=== PATIENT | male | born 1940 | race Caucasian/White ===

== ENCOUNTER 2016-10-25 15:02 | Inpatient (IN) | payer MEDICARE ==
[~2016-10-25] VITALS: Ht 175.3 cm; Wt 95.7 kg
[2016-10-25 15:02] VITALS: BP 151/58; PULSE 87; RESP 26; O2SAT 95
[2016-10-25] MEDS ORDERED: 0.9% Sodium Chloride 1,000 ML IV ONE (15:55)
[2016-10-25] MEDS ORDERED: Ondansetron 2 mg/mL 2 mL Inj IVPUSH PRN (15:55)
--- NOTE | 2016-10-25 15:55 | ED.REPORT ---
HPI-General Illness Date of Service Oct 25, 2016 ED Provider: Curt Meyers DO The patient is a 75 year old male with history of diabetes mellitus who was brought to the emergency department by EMS for generalized weakness and a fever. The patient ate a chicken enchilada last night and subsequently started to feel ill. He vomited last night but has not vomited today. He has also experienced diarrhea. He denies hematemesis, bloody stools or abdominal pain. He has also had a foot infection for the last few months and has been treated with antibiotics. He denies chest pain or shortness of breath. Nursing Notes Stated Complaint: GENERAL WEAKNESS, AMS Chief Complaint: General Complaint Nursing Notes Reviewed: Yes Allergies: Coded Allergies: No Known Allergies (Unverified , 10/25/16) Scheduled Insulin Glargine (Lantus U100 Solostar Insulin Pen) 100 Unit/1 Ml Insuln.pen 30 UNIT SUBQ QAM Insulin Glargine (Lantus U100 Solostar Insulin Pen) 100 Unit/1 Ml Insuln.pen 20 UNIT SUBQ QPM Meloxicam (Meloxicam) 15 Mg Tablet 15 MG PO QAM Metformin (Metformin) 500 Mg Tablet 1,000 MG PO BID Paroxetine (Paxil) 20 Mg Tablet 20 MG PO HS General Time Seen by MD: 15:19 Chief Complaint Fever, Weakness Hx Obtained From: Patient, EMS Arrived By: Ambulance Sudden in Onset?: Yes Onset Occurred: Yesterday Symptom Duration: Since onset Severity: Current: No pain currently Severity: Maximum: No pain Recent Healthcare: Recent doctor visit Similar Sx Previous: No Past Medical History Past Medical History Diabetes mellitus Past Surgical History Cataract surgery Knee surgery Family History Noncontributory Smoking History Never Smoker Social History Lives on [facility] Alcohol Use: Denies alcohol use Drug Use: Denies drug use Ambulatory Status Independent Review of Systems Full Review of Systems Constitutional: Reports: Fever, Weakness - generalized Respiratory: Denies: Shortness of breath Cardiovascular: Denies: Chest pain GI: Reports: Diarrhea, Nausea, Vomiting Neurologic: Reports: Weakness Complete sys rev & neg: except as marked. Physical Exam Vital Signs Vital Signs Date Time Temp Pulse Resp B/P Pulse Ox O2 Delivery O2 Flow Rate FiO2 10/25/16 17:27 89 24 146/51 98 Room Air 10/25/16 15:02 38.1 87 26 151/58 95 Room Air Initial VS: Reviewed Head / Eyes: Atraumatic, Normocephalic, PERRL ENT: Mucous membranes moist, Conjunctiva normal, No scleral icterus Neck: Supple, Non-tender, Full range of motion Respiratory: Breath sounds normal, Clear to auscultation, No respiratory distress Abdomen / GI: Soft, Non-tender, No guarding, No rebound, No distention Lymphatic: No lymphadenopathy Extremities: Vascular intact, Neuro intact Skin: Warm, Dry, No cyanosis Neurologic: Alert, Oriented, Nonfocal Psychiatric: Mood/affect normal, Behavior normal, Normal thought content General/Constitutional: Awake, Alert, Well appearing Heart Sounds / Murmur: Positive: Systolic murmur present.. (III/ at the right upper sternal border) Ankle / Foot: Neurologic intact, Vascular intact Redness, swelling, and warmth to left foot with erythema streaking up to the knee. Interpretation & Diagnostics Lab Results Interpretation Result Diagram: 10/25/16 1550 10/25/16 1550 Test 10/25/16 15:50 White Blood Count 10.6th/mm3 (3.8-10.1) Red Blood Count 4.09mil/mm3 (4.40-5.80) Hemoglobin 12.6g/dL (13.8-17.2) Hematocrit 36.7% (41.0-50.0) Mean Corpuscular Volume 89.7fL (81-100) Mean Corpuscular Hemoglobin 30.8pg (27.0-35.0) Mean Corpuscular Hemoglobin Concent 34.3% (32.0-37.0) Red Cell Distribution Width 13.3% (12.3-15.4) Platelet Count 164bil/L (150-400) Neutrophils (%) (Auto) 92.1% (40-74) Lymphocytes (%) (Auto) 3.9% (14-46) Monocytes (%) (Auto) 3.3% (4-12) Eosinophils (%) (Auto) 0% (0-5) Basophils (%) (Auto) 0.1% (0-3) Sodium Level 132mEq/L (134-144) Potassium Level 3.8mEq/L (3.5-5.2) Chloride Level 91mEq/L (97-108) Carbon Dioxide Level 26mmol/L (18-29) Blood Urea Nitrogen 19mg/dL (8-27) Creatinine 0.84mg/dL (0.76-1.27) Estimat Glomerular Filtration Rate 95mL/min (>59) Glucose Level 192mg/dL (60-99) Lactic Acid Level 2.8mmol/L (0.4-2.0) Calcium Level 8.9mg/dL (8.5-10.1) Magnesium Level 1.5mg/dL (1.6-2.6) Total Bilirubin 0.8mg/dL (0.0-1.2) Aspartate Amino Transf (AST/SGOT) 27U/L (0-50) Alanine Aminotransferase (ALT/SGPT) 20U/L (0-44) Alkaline Phosphatase 65U/L (25-160) Troponin T 0.160ug/L (0.0-0.011) Total Protein 7.4g/dL (6.4-8.4) Albumin 3.7g/dL (3.4-5.0) ECG Interpretation ECG Interpretation: Sinus rhythm PAC Inferior Q waves Time: 15:40 Interpreted by: ED physician Re-Eval/Medical Decision Med Decision/Clinical Course Concerned that the patient's weakness and vomiting may be a silent IA, and significantly elevated troponin. Additionally he has a diabetic foot wound with lactic acidosis based on vancomycin and Zosyn. Patient will be heparinized. Cardiology is consulted, patient will be admitted. Source of Hx: Old records, EMS Time of Eval: 17:02 Re-Evaluation/Progress Note: Rechecked the patient. He complains of feeling weak and lousy. He denies chest pain or shortness of breath. Discussed plan for admission. Consultation #1: Referral / Consult Name: Rizwana Cao MD Consulted With: Cardiology Call Returned at: 17:26 Rent [employer] Miscellaneous Remittance Clerk: Agrees with eval, Agrees with plan Note: Start the patient on aspirin, statin, and heparin. Trend troponins, order echocardiogram and NPO tonight at midnight. Consultation #2: Referral / Consult Name: Pierre Almanza MD Consulted With: Hospitalist Call Returned at: 17:48 Rent And Miscellaneous Remittance Clerk: Will see patient, Agrees with eval, Agrees with plan, Accepts admit Counseled Regarding: Diagnosis, Lab results, Need for admission Discharge & Departure Primary Impression: Diabetic foot infection Additional Impression: Elevated troponin Disposition: ADMITTED TO HOSPITAL Discharge Condition All VS Reviewed: Yes Condition: Stable Referrals: Sandeep Reyes MD (PCP) Crit Care Except Billable Proc Time Spent: 30-74 minutes Services Performed: Patient management by me, Time spent at bedside, Reviewing test results, Reviewing imaging, Discussing patient care, Documentation in record, Time with fam/surrogate Critical Care Notes: See MDM Scribe Attestation Portions of this note were transcribed by Gillian Sanders. I, Dr. Meyers personally performed the history, physical exam and medical decision-making; I reviewed and confirmed the accuracy of the information in the transcribed note. Signed by: Dany Wade, 10/25/16 and [id number]. copies to: Sandeep Reyes MD, Timothy S DO Oct 25, 2016 15:55 Gillian Sanders Oct 25, 2016 16:00
[2016-10-25 16:03] LABS: BASOPHILS % (AUTO) 0.1 % (0-3); EOSINOPHILS % (AUTO) 0 % (0-5); MONOCYTES % (AUTO) 3.3 % (4-12); Mean Corpuscular Hemoglobin 30.8 pg (27.0-35.0); Mean Corpuscular Volume 89.7 fL (81-100); NEUTROPHILS % (AUTO) 92.1 % (40-74); Platelet Count 164 bil/L (150-400)
[2016-10-25 16:40] LABS: Magnesium 1.5 mg/dL (1.6-2.6)
[2016-10-25 16:41] LABS: TROPONIN T 0.16 ug/L (0.0-0.011)
[2016-10-25] MEDS ORDERED: Piperacillin-Tazo 3.375 Gm Inj 3.375 GM in Dextrose 5% Minibag Plus 50 ML IV ONE (17:05)
[2016-10-25 17:27] VITALS: BP 146/51; PULSE 89; RESP 24; O2SAT 98
[2016-10-25] MEDS ORDERED: Heparin 5,000 Unit/mL Inj IVPUSH ONE (17:30)
[2016-10-25] MEDS ORDERED: Heparin 25K Unit/500mL 0.45 NS 25,000 UNIT in IV Premix 1 EACH IV ONE (17:30)
[2016-10-25] MEDS ORDERED: METF500T4 PO (17:49)
[2016-10-25] MEDS ORDERED: MELO-253 PO (17:49)
[2016-10-25] MEDS ORDERED: INSU100I13 SUBQ ×2 (17:49)
[2016-10-25] MEDS ORDERED: PARO20TA57 PO (17:49)
--- NOTE | 2016-10-25 18:06 | DRSVH ---
PROCEDURE: X-RAY CHEST ONE VIEW, PORTABLE ([id number]) INDICATIONS: fever TECHNIQUE: One view of the chest was acquired. COMPARISON: None. FINDINGS: Surgical changes and devices: None. Lungs and pleura: No pleural effusions or pneumothorax. Lungs are clear. Mediastinum: Mediastinal contours appear normal. Heart size is normal. Bones and chest wall: No suspicious bony lesions. Overlying soft tissues appear unremarkable. IMPRESSION: No acute cardiopulmonary disease process. Dictated by: Bertha Young MD, PhD on 10/25/2016 at 18:05 Approved by: Bertha Young MD, PhD on 10/25/2016 at 18:05
[2016-10-25] MEDS ORDERED: Magnesium Sulf 2 Gm/50mL Water 2 GM in IV Premix 1 EACH IV ONE (18:30)
[2016-10-25 19:44] VITALS: BP 138/70; PULSE 80; RESP 20; O2SAT 97
[2016-10-25] MEDS ORDERED: Heparin 25K Unit/500mL 0.45 NS 25,000 UNIT in IV Premix 1 EACH IV SCH (19:50)
--- NOTE | 2016-10-25 20:39 | PCM.HPMED ---
Subjective Date of Service Oct 25, 2016 Primary Provider: Admitting Physician: Primary Care Physician: Sandeep Reyes MD Attending Physician: Admit Status: From the Emergency Department, Full Admit Chief Complaint: Generalized weakness. . History of Present Illness: Pierre Quesada is a 75-year-old male with a past medical history significant for diabetes mellitus type II, insulin using who was flown in from [place] to [facility] via EMS for generalized weakness and nausea and vomiting. The patient reports he ate a chicken enchilada early yesterday afternoon and subsequently started to feel ill. He vomited five times. He reports his nausea and vomiting resolved at 21:00 last night. He had accompanying diaphoresis, dizziness, and chills. He denies headache, chest pain , upper extremity pain, numbness, or tingling, jaw pain, shortness of breath, abdominal pain, dysuria, diarrhea, or constipation. He has also recently had cellulitis of his left foot treated with unknown antibiotic. He comes to the ER this evening for generalized weakness and just not feeling "too hot." He was found to have an elevated troponin of 0.160. His EKG was equivocal. Vital signs in the ER: Temperature 38.1. Pulse 87. Respiratory rate 26. Blood pressure 151/58. SPO2 95% on room air. He was given aspirin 324 mg, vancomycin x 1, Zosyn 3.375 mg x 1, and 1 L of NS in the ED. PCP is Eric on [facility]. . Review of Systems: A comprehensive review of systems was conducted with the patient and found to be negative except as above in the History of Present Illness. . Allergies Coded Allergies: No Known Allergies (Unverified , 10/25/16) Home Medications Lantus 30 units every morning and 20 units every afternoon. Metformin 1000 mg twice a day. Paroxetine 20 mg daily. Meloxicam 15 mg as needed for pain (rarely takes this medication). . PMH 1. Diabetes mellitus type II, insulin using, uncontrolled 7.1%. 2. Hyperlipidemia. 3. Depression. 4. Left foot cellulitis. 5. Neuropathy. . Surgical History 1. Bilateral cataract extraction. 2. Right knee arthroscopy. 3. Tonsillectomy. . Family History Mother who from breast cancer. Father unknown type of cancer. . Social History Hx Alcohol Use: No Hx Substance Use: No Hx Tobacco Use: No Smoking Status: Never Smoker Additional Information He has been for 6 years and has a step son but no children of his own. Born in [place] and raised in [place]. Came to [place] in 1991. Retired from [employer]. . Exam Vital Signs Vital Sign - Last Date Time Temp Pulse Resp B/P Pulse Ox O2 Delivery O2 Flow Rate FiO2 10/25/16 17:27 89 24 146/51 98 Room Air 10/25/16 15:02 38.1 Exam General: Elderly male lying in bed and in no acute distress, well-developed, well-nourished, appropriately interactive. HEENT: Normocephalic, atraumatic. External ears without defect. Pupils equal, round, and reactive to light. Anicteric sclerae, moist conjunctivae, and no lid lag. Oropharynx free of erythema and cobble stoning with moist mucosa. Neck: Supple with full range of motion. No jugular venous distension. No bruits. No lymphadenopathy or thyromegaly. Cardiovascular: Regular rate and rhythm with no murmurs, rubs, or gallops appreciated Pulmonary: Clear to auscultation bilaterally with no crackles, wheezes, or rhonchi. Normal respiratory effort with no use of accessory muscles. Abdomen: Soft, nontender, bowel tones present, nondistended. No hepatosplenomegaly or masses appreciated. Extremities: No clubbing, cyanosis, or edema. Skin: Erythema and warmth of left foot circumferentially with slight extension proximal to pretibial area. No other skin rashes. Neurological: Cranial nerves grossly intact. No known gait impairment. Psychiatric: Normal mood and affect. Alert and oriented to person, place, and time. Lab and Diagnostics Labs Item Value Date Time Lactic Acid Level 2.8 mmol/L H 10/25/16 1550 Calcium Level 8.9 mg/dL 10/25/16 1550 Magnesium Level 1.5 mg/dL L 10/25/16 1550 Total Bilirubin 0.8 mg/dL 10/25/16 1550 Aspartate Amino Transf (AST/SGOT) 27 U/L 10/25/16 1550 Alanine Aminotransferase (ALT/SGPT) 20 U/L 10/25/16 1550 Alkaline Phosphatase 65 U/L 10/25/16 1550 Troponin T 0.160 ug/L *H 10/25/16 1550 Total Protein 7.4 g/dL 10/25/16 1550 Albumin 3.7 g/dL 10/25/16 1550 Procalcitonin 0.14 ng/mL 10/25/16 1550 Result Diagram: 10/25/16 1550 10/25/16 1550 Microbiology Blood cultures x 2 pending. . X-Rays, CTs and MRIs X-RAY CHEST ONE VIEW, PORTABLE IMPRESSION: No acute cardiopulmonary disease process. Dictated by: Bertha Young MD, PhD on 10/25/2016 at 18:05 Approved by: Bertha Young MD, PhD on 10/25/2016 at 18:05 . 12-lead ECG EKG: Sinus rhythm, heart rate 85, left axis, normal intervals, normal R-wave progression, no pathological Q waves or acute ischemic changes of his ST elevation or depression. Assessment & Plan Pierre Quesada is a 75-year-old male with a past medical history significant for diabetes mellitus type II, insulin using who was flown in from [place] to [facility] via EMS for generalized weakness and nausea and vomiting. 1. Acute coronary syndrome, probable NSTEMI, present on admission. Active. - The patient presented with generalized weakness secondary to nausea and vomiting the day prior and accompanying dizziness and diaphoresis which in the setting of diabetes may represent anginal equivalent. He denied chest pain or shortness of breath. - Cardiac risk factors include: Hyperlipidemia, diabetes mellitus type II, and probable hypertension. - The patients EKG was equivocal. - Initial troponin 0.160. Trend serial troponins x 3. - Supplemental oxygen as needed to keep O2 sats > 94%. - Started IV fluids NS at 125 mL/hr. - Nitroglycerin ordered as needed for chest pain. Morphine 1-2 mg every 5 minutes as needed for chest pain not amenable to nitroglycerin. - The patient was given aspirin 324 mg. Plavix was not given as patient may be taken for cardiac catheterization tomorrow morning per cards. - Cardiac heparin drip ordered and will be started once patient is in the room from ED. - Monitor blood pressure, vital signs, and telemetry closely. - Ordered fasting lipid panel for the morning. - Ordered echocardiogram, pending. - Patient is nothing by mouth for possible cardiac catheterization in the morning. - Cardiology was consulted, Dr. Cao. We appreciate her time and care of this patient. 2. Sepsis, present on admission. Active. - SIRS criteria met: Febrile 38.1, tachypnea respiratory rate 26, lactic acid 2.8, probable source left foot nonpurulent cellulitis and possible food poisoning. - Early goal directed therapy was met including IV antibiotics and fluid resuscitation. - Patient presented with generalized weakness. 3. Nonpurulent cellulitis, present on admission. Active. - The patient has been treated for cellulitis as an outpatient with unknown antibiotic. - Patient received vancomycin 1 and Zosyn 1. Ordered cefazolin 1 g every 8 hours to continue treatment nonpurulent cellulitis. - Elevated patient's feet. - IV fluids as above. - Lactic acid elevated at 2.8 in the setting of possible NSTEMI. We will continue to monitor every 2 hours until under 2.0. - Ordered pro-calcitonin, pending. - Blood cultures 2 pending. 4. Possible food poisoning, present on admission. Resolving. - Patient reports he began having nausea and vomiting after he ate lunch at a restaurant which subsided yesterday night at 21:00. - Supportive management including IV fluids. - Viral respiratory PCR as there have been several outbreaks of Norovirus which fit his presentation. 5. Hypomagnesemia, present on admission. Active. - Ordered 2 g magnesium for electrolyte repletion. Continue to monitor daily. Chronic problems: Diabetes mellitus type II, insulin using, chronic. - The patient reports that he is not always compliant with his diabetic medication/insulin. - Patient reports his last hemoglobin A1c was 7.1%. Ordered hemoglobin A1c, pending. - Ordered regular insulin medium dose correction scale insulin as patient will be nothing by mouth. - When appropriate for by mouth intake may be put on a carbohydrate consistent/ heart healthy diet and correctional scale insulin may be switched to Lispro. - Continue home Lantus 30 units in the morning and 20 units at night when taking in PO. Hyperlipidemia, chronic. - Ordered fasting lipid panel for tomorrow morning. - Not medically managed. Depression, chronic. - Continue Paroxetine 20 mg daily. PRN antiemetics: Zofran and Maalox. PRN bowel regimen: Senna and MiraLAX. PRN analgesics: Tylenol. High risk medications: Morphine. Patient is admitted under inpatient status with expected length of stay greater than 2 midnights due to severity of presenting symptoms, risk of adverse event, and complexity of treatment plan. . Attending Statement The patient was seen and examined together with Dr. Renee on 10/25/2016 and I agree with the history, exam and plan as outlined in the note above. . copies to: Sandeep Reyes MD, Georgia M DO Oct 25, 2016 18:04 Pierre Almanza MD Oct 26, 2016 08:06
[2016-10-25] MEDS: Insulin GLARgine 100 Unit/mL Syringe SUBQ SCH (21:00)
[2016-10-25] MEDS ORDERED: PARoxetine 20 mg Tablet PO SCH (21:00)
--- NOTE | 2016-10-25 21:19 | NUR ---
Admission note Pt oriented x3. Pain free. Telemetry in place. Sinus tach at 104bpm Heparin gtt started at 1000units/hr. Febrile at 38.2. Pt requests blankets but denied due to fever. Will give tylenol as ordered. Unable to obtain IV start for abx and NS maintenance infusion. Called IV therapy. They are aware of need. Pt is overall fatigued. Had a small amt of dinner. 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 Left leg elevated on pillows due to cellulitis/swelling.
[2016-10-25] MEDS: 0.9% Sodium Chloride 1,000 ML IV SCH (22:11)
[2016-10-25] MEDS: Insulin Human REGular 300 Unit/3 mL Inj SUBQ SCH (23:06)
[2016-10-25 23:08] LABS: APPEARANCE,URINE CLEAR (CLEAR,HAZY); COLOR,URINE YELLOW (YELLOW); OCCULT BLOOD,URINE SMALL (NEGATIVE); UROBILINOGEN,URINE NORMAL (NORMAL)
[2016-10-25] MEDS: Acetaminophen IV 1,000 MG in IV Premix 1 EACH IV PRN (23:44)
[2016-10-25 23:51] VITALS: BP 163/78; PULSE 100; O2SAT 95
--- NOTE | 2016-10-25 23:52 | NUR ---
Fever Pt has temp of 39.3 IV tylenol infusing. Ice paks placed to both axilla and bilateral groin area. Fan on. Washcloth to forehead Explained all procedures to patient. Pt verbalizes understanding
--- NOTE | 2016-10-25 23:53 | NUR ---
ABX therapy IV vanco late due to unable to access 2nd IV site until 2229. (Not given in ED. ) IV magnesium given ( stated that pt is to have heart cath in AM) Now IV tyelnol. IV vanco next to infuse.
[2016-10-26] VITALS (21 sets, daily range): BP systolic 102–155; BP diastolic 60–91; PULSE 78–104; RESP 15–31; O2SAT 95–98
[2016-10-26] MEDS: CeFAZolin Inj 1 GM in IV Premix 1 EACH IV SCH ×2 (00:39→08:21)
--- NOTE | 2016-10-26 00:44 | NUR ---
IV abx Pharmacist Win confirmed that ancef and heparin are compatible at a Y site.
[2016-10-26] MEDS: Insulin Human REGular 300 Unit/3 mL Inj SUBQ SCH ×4 (02:03→21:29)
[2016-10-26 03:03] LABS: MONOCYTES % (AUTO) 6.4 % (4-12); Mean Corpuscular Hemoglobin 30.1 pg (27.0-35.0); Mean Corpuscular Volume 89.9 fL (81-100); NEUTROPHILS % (AUTO) 83.4 % (40-74); Platelet Count 167 bil/L (150-400)
[2016-10-26 03:04] LABS: BASOPHILS % (AUTO) 0.1 % (0-3); EOSINOPHILS % (AUTO) 0 % (0-5)
[2016-10-26] MEDS ORDERED: Heparin Protocol Boluses IVPUSH PRN (03:30)
[2016-10-26 03:35] LABS: Magnesium 2.1 mg/dL (1.6-2.6); Phosphorus 3.1 mg/dL (2.5-4.9)
[2016-10-26] MEDS: 0.9% Sodium Chloride 1,000 ML IV SCH ×3 (03:50→17:39)
[2016-10-26] MEDS: PARoxetine 20 mg Tablet PO SCH (08:21)
[2016-10-26] MEDS: Insulin GLARgine 100 Unit/mL Syringe SUBQ SCH ×2 (08:22→21:30)
[2016-10-26] MEDS ORDERED: Vancomycin Dose per Pharmacist XX SCH (08:30)
--- NOTE | 2016-10-26 10:52 | NUR ---
Telemetry Update: Afib Patient has been Sinus Rhythm 70-90s with PACs. At 10:23 patient converted to Afib 110-120s. JUAN Banegas aware.
--- NOTE | 2016-10-26 11:00 | NUR ---
A-fib per monitor technician, patient went into A-fib at 1023hrs today rate in 110-120bpm. Dr Abdalla notified at 1050hrs. new orders received.
[2016-10-26] MEDS: Acetaminophen IV 1,000 MG in IV Premix 1 EACH IV PRN ×2 (11:14→23:01)
[2016-10-26] MEDS ORDERED: Vancomycin Inj 1,000 MG in IV Premix 1 EACH IV SCH (11:30)
[2016-10-26] MEDS: Vancomycin Dose per Pharmacist XX SCH (11:40)
--- NOTE | 2016-10-26 11:59 | PCM.CONPHA ---
Subjective Generalized weakness. . Objective Vital Signs Date Time Temp Pulse Resp B/P Pulse Ox O2 Delivery O2 Flow Rate FiO2 10/26/16 09:48 37.6 78 20 139/77 96 Room Air 10/26/16 09:21 82 10/26/16 06:05 36.9 85 20 126/71 95 Room Air 10/26/16 05:25 80 10/26/16 01:30 37.5 10/25/16 23:51 100 163/78 95 Room Air 10/25/16 23:44 39.4 10/25/16 19:44 38.2 80 20 138/70 97 Room Air 10/25/16 17:27 89 24 146/51 98 Room Air 10/25/16 15:02 38.1 87 26 151/58 95 Room Air Intake and Output 10/24/16 10/25/16 10/26/16 00:00 00:00 00:00 Intake Total 1900 ml Balance 1900 ml Weight (Kilograms): 95.300 Height (Feet): 5 Height (Inches): 9.00 Test 10/25/16 15:50 10/25/16 22:30 10/26/16 00:20 10/26/16 02:25 Prothrombin Time 10.7sec (8.1-12.5) Prothromb Time International Ratio 1.00ratio Urine Color Yellow (YELLOW) Urine Appearance Clear (CLEAR,HAZY) Urine pH 6.0 (5.0-8.0) Urine Specific Avery 1.025 (1.003-1.035) Urine Protein 100mg/dL (NEG,TRACE) Urine Glucose (UA) Negativemg/dL (NEGATIVE) Urine Ketones Tracemg/dL (NEGATIVE) Urine Occult Blood Small (NEGATIVE) Urine Nitrite Negative (NEGATIVE) Urine Bilirubin Negative (NEGATIVE) Urine Urobilinogen Normalmg/dL (NORMAL) Urine Leukocyte Esterase Negative (NEGATIVE) Urine RBC 0-2/hpf (0-2) Urine WBC 0-5/hpf (0-5) Urine Epithelial Cells Occasional/hpf (NONE-MOD) Urine Crystals Uric acid crystals (NONE Urine Bacteria None/hpf (NONE-FEW) Urine Hyaline Casts None/lpf (NONE) Urine Granular Casts None seen (NONE SEEN) Urine Waxy Casts None seen (NONE SEEN) Urine Red Blood Cell Casts None seen (NONE SEEN) Urine White Blood Cell Casts None seen (NONE SEEN) Urine Mucus None seen (None Seen) Urine Trichomonas None seen (NONE SEEN) Urine Yeast None (NONE SEEN) Urine Culture Reflexed Not indicated Lactic Acid Level 1.0mmol/L (0.4-2.0) White Blood Count 9.8th/mm3 (3.8-10.1) Red Blood Count 3.56mil/mm3 (4.40-5.80) Hemoglobin 10.7g/dL (13.8-17.2) Hematocrit 32.0% (41.0-50.0) Mean Corpuscular Volume 89.9fL (81-100) Mean Corpuscular Hemoglobin 30.1pg (27.0-35.0) Mean Corpuscular Hemoglobin Concent 33.4% (32.0-37.0) Red Cell Distribution Width 13.2% (12.3-15.4) Platelet Count 167bil/L (150-400) Neutrophils (%) (Auto) 83.4% (40-74) Lymphocytes (%) (Auto) 9.8% (14-46) Monocytes (%) (Auto) 6.4% (4-12) Eosinophils (%) (Auto) 0% (0-5) Basophils (%) (Auto) 0.1% (0-3) Activated Partial Thromboplast Time 38.0sec (22.8-33.0) Sodium Level 131mEq/L (134-144) Potassium Level 3.8mEq/L (3.5-5.2) Chloride Level 92mEq/L (97-108) Carbon Dioxide Level 25mmol/L (18-29) Blood Urea Nitrogen 19mg/dL (8-27) Creatinine 0.95mg/dL (0.76-1.27) Estimat Glomerular Filtration Rate 83mL/min (>59) Glucose Level 201mg/dL (60-99) Calcium Level 8.4mg/dL (8.5-10.1) Phosphorus Level 3.1mg/dL (2.5-4.9) Magnesium Level 2.1mg/dL (1.6-2.6) Total Bilirubin 0.6mg/dL (0.0-1.2) Aspartate Amino Transf (AST/SGOT) 27U/L (0-50) Alanine Aminotransferase (ALT/SGPT) 19U/L (0-44) Alkaline Phosphatase 58U/L (25-160) Troponin T 0.173ug/L (0.0-0.011) Total Protein 6.1g/dL (6.4-8.4) Albumin 3.5g/dL (3.4-5.0) Triglycerides Level 233mg/dL (0-149) Cholesterol Level 197mg/dL (100-199) LDL Cholesterol, Calculated 95.400mg/dL (0-99) VLDL Cholesterol 46.600mg/dL HDL Cholesterol 55mg/dL (>39) Cholesterol/HDL Ratio 3.58 (0.0-4.4) Procalcitonin 0.24ng/mL (See Comment) Assessment/Plan Assessment/Plan Patient is an 75 y.o. male receiving vancomycin DFI. Concurrent abx include: Flagyl and ancef. WBC count is 8 and the patient is afebrile. Patient is 95 kg, 69 inches tall with a SCr of 0.95 mg/dL-- estimated CrCl of 85 mL/min. Based on patient parameters vancomycin will be dosed at 1250mg q12h with a target trough of 15-20 /mL. Trough will be drawn prior to the 4th dose on 10/27 @ 1200. Pharmacy will follow daily and adjust as appropriate. Thank you for the consult in the care of this patient. RTM PharmKem Church Oct 26, 2016 11:59
[2016-10-26] MEDS: cefTRIAXone Inj 2,000 MG in IV Premix 1 EACH IV SCH (12:29)
[2016-10-26] MEDS: Fluconazole Inj 200 MG in IV Premix 1 EACH IV SCH (12:35)
--- NOTE | 2016-10-26 12:56 | DRSVH ---
[facility] [address] [place] [address] Echocardiogram Report Name: REINIER PÉREZ SStudy Date: 10/26/2016 Raf t: 71 in Hospital Exam Location: [facility] Weigh t: 210 lb Gender: Male BSA: 2.1 m2 : 1940 Age: 75 yrs Reason For Study: ACUTE NSTEMI Ordering Physician: HOSPITALIST [facility] Performed By: Yahaira Benson Referring Physician: DR. LR, DR. RIBERA Interpretation Summary ) Mild-moderate concentric left ventricular hypertrophy with normal size and hyperdynaimc left ventricular systolic functoin (EF 70-75%). 2) No obvoius wall motion abnormalities present. 3) Normal right ventricular size and function. 4) Mild to moderate aortic stenosis (valve area 1.3cm2, mean gradient 18mmHg). 5) Elevated right sided filling pressures based on IVC assessment. 6) No prior Echo available for comparison. Procedure: A two-dimensional transthoracic echocardiogram with color flow and Doppler was performed. The study quality was technically difficult. A contrast injection of Definity was performed to improve assessment of LV function. Contrast was injected into an intravenous site in the left arm. A total of 4 cc of contrast was given. There is no prior echocardiogram noted for this patient. The patient was in atrial fibrillation with rapid ventricular response during the exam with a heart rate exceeding 100 bpm. Left Ventricle: The left ventricle is normal in size. The LVOT diameter is 2.2 cm. The LVOT velocity is 98.9 cm/sec. There is mild-moderate concentric left ventricular hypertrophy. The left ventricle is hyperdynamic. The ejection fraction is estimated to be 70-75%. There are no obvious focal wall motion abnormalities noted but poor endocardial definition reduces the sensitivity for the detection of such. Diastolic function could not be accurately assessed due to atrial fibrillation. Right Ventricle: The right ventricle grossly appears normal in size with probable normal systolic function. Atria: The left atrium is mildly dilated. Right atrial size is normal. There is no Doppler evidence for an atrial septal defect. Mitral Valve: There is mild to moderate mitral annular calcification. There is trace mitral regurgitation. Aortic Valve: The aortic valve is trileaflet. The aortic valve is heavily calcified. The calculated aortic valve area is 1.3 cm2. The peak aortic velocity is 288 cm/sec. The aortic valve mean gradient is 18 mmHg. There is mild to moderate aortic stenosis. No aortic regurgitation is present. Tricuspid Valve: The tricuspid valve is not well visualized, but is grossly normal. There is a trace or physiologic amount of tricuspid regurgitation. Pulmonary artery pressures cannot be estimated because of the lack of a measurable TR jet velocity. Pulmonic Valve: The pulmonic valve is not well visualized. There is a trace or physiologic amount of pulmonic regurgitation. Great Vessels: The aortic root is normal size. The dimensions of the ascending aorta are normal. The pulmonary artery is not well visualized, but is probably normal size. The IVC is dilated (diameter is greater than 2.1 cm) and it collapses less than 50% with a sniff. This suggests a high right atrial pressure of 15 mm Hg. Pericardium/ Pleura There is no pericardial effusion. There is no pleural effusion. MMode/2D Measurements & Calculations LVIDd: 4.1 cm LA dimension: 4.0 cm RA long axis LVOT diam: 2.2 cm LVIDs: 2.6 cm AoV Openin.75 cm FS: 37.8 % LA A2 area: 25.6 cm RA area Ao root diam: 3.5 cm IVSd: 1.3 cm LA A4 area: 23.9 cm asc Aorta Diam LVPWd: 1.4 cm LA length (vol) : 17.7 cm RA vol Ao Arch Diam LA vol: 86.8 ml : 54.8 ml (Proximal trans.) LA vol index RA : 26.0 mm2 IVC diam: 2.4 cm LV farias. diameter/BSALV sys. diameter/BSA (cm/m^2): 2.0 (cm/m^2): 1.2 Doppler Measurements & Calculations Ao V2 max: 287.7 cm/secMV E max clement Med Peak E' Clement PA V2 max Ao max P.2 mmHg : 166.3 cm/sec : 82.0 cm/sec Ao mean P.0 mmHg E/E' med: 18.1 PA mean PG LVOT Max Clement MVA(VTI): 2.2 cm2 Lat Peak E' Clement : 98.9 cm/sec PA Accel Time E/E' lat: 15.1 : 0.10 sec DELMI(I,D): 1.3 cm sev ratio: 0.35 MV V2 mean: 84.9 cm/secAo V2 mean LV V1 max PG PA V2 mean MV mean P.8 mmHg : 200.5 cm/sec : 61.8 cm/sec MV V2 VTI: 29.7 cm Ao V2 VTI: 48.9 cmLV V1 VTI: 17.3 cm DELMI(V,D): 1.3 cm2 DELMI indexed to BSA (cm^2/m^2): 0.62 Reading Physician:12:56 PM
[2016-10-26] MEDS: metroNIDAZOLE Inj 500 MG in IV Premix 1 EACH IV SCH ×2 (13:29→16:30)
[2016-10-26] MEDS ORDERED: Heparin 1,000 Units/500 mL NS Premix IV ONE (14:47)
[2016-10-26] MEDS ORDERED: Heparin 5,000 Units/500 mL NS Premix IV ONE ×2 (14:47→15:48)
--- NOTE | 2016-10-26 14:59 | NUR ---
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
[2016-10-26] MEDS ORDERED: fentaNYL-PF 50 mCg/mL 2 mL Inj ONE (15:22)
[2016-10-26] MEDS ORDERED: Dextrose 50% Water 50 mL Inj IV ONE (15:23)
[2016-10-26] MEDS ORDERED: MeTOProlol 1 mg/mL 5 mL Inj ONE (15:23)
--- NOTE | 2016-10-26 15:34 | NUR ---
transfer to room 2020 patient will transfer to room 2020 after microbiology lab manager procedure. report called to Marylou Mcneill RN on [facility].
[2016-10-26] MEDS ORDERED: Atropine 1 mg/10 mL (Code) Syringe ONE (15:42)
[2016-10-26] MEDS ORDERED: Heparin 1,000 Unit/mL 10 mL Inj ONE ×2 (15:42→16:10)
[2016-10-26] MEDS ORDERED: Nitroglycerin 50,000 mcg/250 mL D5W Premix IV ONE (15:42)
--- NOTE | 2016-10-26 16:23 | CONS ---
[address] [address] CONSULTATION REPORT PATIENT: REINIER QUESADA : 1940 MR#: [id number] ADMIT: 10/25/2016 JOB ID: [id number] DATE OF CONSULTATION: September, CONSULTING PHYSICIAN: Cardiology--Ralf Ascencio MD CARDIOLOGY CONSULTATION--INITIAL INPATIENT EVALUATION: PROBLEM LIST: 1. Acute Coronary Syndrome (ACS). a. Atypical presentation: Diabetic with acute illness with nausea, vomiting, and weakness. a. ECG: Minor NSSTT only noted. b. Elevated troponin: Troponin-T 0.17. 2. Diabetic with acute atypical illness. a. Nausea and repeated vomiting: Consider gastroenteritis. a. Weakness and confusion. 3. CAD risk factors: a. Diabetes: IDDM for six years without other defined sequelae except possible gastroparesis. b. Lifetime nonsmoker. c. Hypertension: Poorly documented history regarding hypertension. d. Hyperlipidemia: Poorly documented history regarding hyperlipidemia. e. Family history: Noncontributory. 4. Atrial Fibrillation: Onset of asymptomatic atrial fibrillation with heart rates 110-130 one hour ago. 5. Other problems: a. Cellulitis: Chronic cellulitis right foot and ankle for several months. CHIEF COMPLAINT: Called because of: Elevated troponin noted during emergency department evaluation of acute illness; then clinical diagnosis of non STEMI. Consider cardiac catheterization. HISTORY OF PRESENT ILLNESS: Cardiology consultation is requested by the Hospitalist Service when elevated troponin was noted during the evaluation of this 75-year-old, insulin-dependent diabetic. His clinical presentation did not include overt cardiac symptoms; but the presence of diabetes raised the question of coronary ischemia with atypical symptoms. Mr. Quesada does not have a history of known of prior known heart disease. In general he is active, living with his and stepson, without effort, limitation or effort-related symptoms. In general he has no cardiac symptoms during his daily activities including driving, and climbing stairs. His current illness began 36 hours ago when he became ill with GI upset after eating an enchilada. He was nauseous and vomited six times throughout the night. This seems largely resolved now. He attributed it to the food that he had eaten. However, he presented to the emergency department by aircraft EMS transport after his noted he was very very weak and could barely walk. EMERGENCY DEPARTMENT: The emergency department records noted severe weakness and confusion. The cellulitis of his left foot and ankle, and some erythema extending up the leg, was noted. Otherwise no overt precipitating illness was noted, including no finding of diabetes out of control. HOSPITAL COURSE: In the hospital he has been treated with aspirin and heparin IV infusion for a clinical diagnosis of high-risk ACS with NSTEMI. He has been stable. Note he did have fever to 39 degrees the night before. From a cardiac point of view the patient tells me that he has not had any chest discomfort of any sort. He has not been short of breath. In the remote past he had discomfort in his left arm that was not exertional and led to stress tests that he understood were unremarkable. None of this is recent. He has not had other cardiac symptoms, including dyspnea, dyspnea on exertion, or other symptoms of heart failure such as nocturnal dyspnea or edema. He has no history of arrhythmia including no history of syncope, presyncope, or tachy palpitations. Regarding other possible underlying vascular disease, he has no history of CVA or current symptoms of TIA. No claudication. Regarding possible dual antiplatelet therapy, he reports no current bleeding symptoms, no anticipated upcoming surgery, and that he would be reliable to take mandatory medicines if needed. ALLERGIES: No reported drug allergies. No history of allergy to medical contrast; or to seafood, iodine, or shellfish. MEDICATIONS: He does not normally take aspirin. He does not normally take a statin. 1. Insulin glargine 30 units q.a.m., 20 units q.p.m. 2. Metformin b.i.d. Last dose was 48 hours ago. Other medicines not clear per the patient. PAST MEDICAL HISTORY: He has a primary physician but otherwise reports no significant medical illnesses except as above. REVIEW OF SYSTEMS: I questioned him and his about a 13-point review of systems which is unremarkable, noncontributory, or negative except as noted includin. No history of thyroid disorder. 2. No history of lung disorder. He reports allergy to cats that has caused wheezing requiring an emergency department visit in the remote past. 3. No history of GI disorder including hepatitis, jaundice, ulcers. He gets rare indigestion. PERSONAL/SOCIAL HISTORY: 1. Cigarettes: Lifetime nonsmoker. 2. Alcohol: He does not report heavy alcohol use. 3. Family: He lives with his , and her son. 4. 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 FAMILY HISTORY: Not further contributory regarding family history of premature coronary disease. PHYSICAL EXAMINATION: General appearance: Pleasant elderly man who is comfortable at rest. He appears alert today. Vital signs: Blood pressure 1115/65. Heart rate 115-135, showing atrial fibrillation with RVR on telemetry. Now afebrile. Oxygen saturation 95% on room air. Weight 205 pounds. Neurologic and mental status: No overt focal neurologic defect noted. His thought the angle of his mouth at the left-side drooped transiently yesterday but it appears normal today. The thought one or both feet might have been dragging yesterday, but there is full strength in the hands and feet. He is alert, oriented, appropriate, and conversant. HEENT: PERRL. Sclerae slightly pale. Conjunctivae not icteric. Mouth and mucous membranes intact with Mallampati 4. Neck: Carotid upstroke intact, without bruit. Regarding possible aortic stenosis, the carotid upstroke seems brisk and normal. Jugular venous pressure unremarkable. No palpable thyromegaly. No palpable cervical lymphadenopathy. Lungs: Clear to auscultation bilaterally including forced expiration. Cardiac: Notable for a modest 3/6 systolic ejection murmur at the left sternal border radiating to the neck. The overall impression of the examination is not severe aortic stenosis. No diastolic murmur. Abdomen: Obese, but otherwise unremarkable. Without tenderness, mass, hepatosplenomegaly, or bruit of abdominal aortic aneurysm. Extremities: No pretibial edema. There is erythema consistent with cellulitis of the left foot, with some warmth and swelling, but not tender. There may be some erythema extending up the inner aspect of the left lower extremity above the ankle. He reports there is an area of breakdown between the 1st two toes on left foot. Regarding pulses, the dorsalis pedis pulses are softly palpable bilaterally, but the anterior tibial pulses are not palpable bilaterally. DIAGNOSTIC STUDIES: Electrocardiogram: The ECG tracing is overall unremarkable, with sinus rhythm and mild nonspecific ST-T wave changes. Telemetry: He went into atrial fibrillation just an hour or so ago with no symptoms and heart rates overall somewhat above 100--from 110 up to about 130, while sitting at the edge of the bed. Chest x-ray report is unremarkable from a cardiac point of view. LABORATORY: CBC includes WBC 9800 with hemoglobin 10.7, hematocrit 32, normal indices, and platelet 167,000. Coagulation includes PTT 50.3 on heparin infusion. Chemistries include a potassium 3.8, BUN 19, creatinine 0.95, glucose 201. LFT unremarkable. Cardiac markers include troponin elevated at 0.116, then 0.173. Lipid panel includes cholesterol total 197; with LDL calculated 95; HDL 55; and triglycerides 233. Procalcitonin 0.24. ASSESSMENT: I discussed my findings, impressions, and management considerations with the patient and his and family, as well as with the Hospitalist Service and Cardiology, includin. Acute Coronary Syndrome with non-ST elevation myocardial infarction: The primary objective finding in this situation is the elevated troponin. It occurs in the setting of an atypical presentation with a GI illness suggestive of resolving gastroenteritis. Because of underlying diabetes he was considered at high risk for coronary disease and also at risk for atypical presentations with atypical symptoms or atypical ischemic equivalents. He does not have any overt cardiac symptoms or findings otherwise. I discussed with the patient and his the recommendation to proceed with urgent cardiac catheterization for definitive diagnosis and to guide treatment options including medical therapy, percutaneous coronary intervention, or bypass surgery if needed. We discussed the catheterization and intervention procedure including possible risks and complications. We discussed bleeding, infection, and blood clots; as well as injury to nerve, artery, vein, or kidney; and also arrhythmia, drug reaction, or others. We discussed treatment as needed including surgery, pacemaker, and transfusion. We discussed more serious complications that are possible including stroke, heart attack, , and emergency surgery including transfer for bypass surgery. After discussion and questions, he signed informed consent to proceed. In our discussion I considered the timing of the procedure with regard to his multiple other medical conditions including his chronic cellulitis, which will not be resolved in the near term; and his recent acute illness, which appears resolving, and his diabetes, which appears adequately controlled. RECOMMENDATIONS: 1. Cardiac catheterization and treatment as indicated including possible percutaneous coronary intervention-urgent. 2. Echocardiogram. 3. Optimal medical therapy (OMT): Initiate aspirin and statin now (these are indicated chronically as well). Treatment for ACS including heparin, and Plavix and NING inhibitor to be considered pending the catheterization. 4. Consider further diagnostic and treatment attention to his four months of cellulitis. Consider vascular disease. ECHOCARDIOGRAM: I reviewed the Echocardiogram images that were done. The echocardiogram was a technically difficult study requiring Definity contrast. Interestingly LV function is vigorous, with ejection fraction over 70%, and no definite wall motion defect is noted. Overall the ventricle raises the question of hypertensive LV and current possibly under-filled left ventricle. Valvular heart disease includes poorly visualized aortic valve that is at least moderately abnormal with thickening, calcification, and somewhat restricted opening. Doppler parameters suggest mild to moderate aortic stenosis with a peak jet velocity under three MPS and mean gradient 18 mmHg. MTDD
[2016-10-26] MEDS ORDERED: 0.9% Sodium Chloride 250 ML BOLUS IV PRN (17:55)
[2016-10-26] MEDS ORDERED: Sodium Chloride LOK Flush 10 mL Syringe IVFLUSH PRN (17:55)
[2016-10-26] MEDS ORDERED: Atropine 1 mg/10 mL (Code) Syringe IVPUSH PRN (17:55)
[2016-10-26] MEDS ORDERED: 0.9% Sodium Chloride 400 ML (4 HRS) IV ONE (17:55)
[2016-10-26] MEDS ORDERED: Ondansetron 2 mg/mL 2 mL Inj IVPUSH PRN (17:55)
--- NOTE | 2016-10-26 19:28 | NUR ---
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 A&O x3, bedrest until 2300. Right groin site C/D/I with bioccclusive dressing. Site non tender and soft with no drainage or bruising. Pedal pulses somewhat weak but palpable. Genralized trace edema present in lower legs. Recovery per protocol, IV fluids at 100ml x1 liter. See CCU flow sheet. Frequent rounding and site checks continue. Family at bedside. Pt on 3-4L NC at 97%
--- NOTE | 2016-10-26 20:02 | CS94 ---
[address] [address] DIAGNOSTIC CARDIAC CATHETERIZATION PATIENT: REINIER PÉREZ : 1940 MR#: [id number] ADMIT: 10/25/2016 JOB ID: [id number] PROCEDURE NOTE --CARDIAC CATHETERIZATION LABORATORY: DATE OF PROCEDURE: Friday, October 26, 2016 SPIRAL SPRING WINDER: Ralf Ascencio MD PROCEDURES: 1. Coronary Angiogram -- Urgent. 2. Percutaneous Coronary Intervention (PCI): A. JOI (Drug-Eluting Stent)--Proximal Left Circumflex culprit lesion; using Resolute 3.5 x 18 mm stent. CLINICAL DETAILS: This 75-year-old, diabetic, nonsmoker presents to the Cardiac Catheterization Laboratory for urgent coronary angiogram, and consideration of PCI after he was admitted with clinical diagnosis of Acute Coronary Syndrome(ACS ), and Non-ST Elevation Myocardial Infarction(NSTEMI). He presented initially with atypical symptoms that were largely non-coronary symptoms, but interpreted as possible precipitants of acute coronary syndrome, or possible ischemic equivalent. Specifically, he had 12 hours of nausea, and vomiting that was attributed to probable gastroenteritis after eating. Troponin was found to be elevated with Troponin T of 0.17. ECG is largely unremarkable with mild nonspecific ST-T wave changes. Echocardiogram shows moderate concentric LVH with vigorous LV function, with ejection fraction above 70%. No definite wall motion defect was noted on a technically limited study. There is an abnormal aortic valve with mild to moderate aortic stenosis with mean aortic gradient 18 mmHg. Note, also he went into atrial fibrillation about 2 hours before the procedure with ventricular rates 100-130 b.p.m; but asymptomatic. PROCEDURAL DETAILS: I evaluated him prior to the procedure. We discussed the findings, impressions and management considerations including with his ; and including the recommendation for urgent catheterization to define coronary anatomy and guide treatment decisions for medical therapy, PCI, or even bypass surgery. We discussed the procedure as well as alternatives, benefits and possible risks and complications. After discussion amd questions. he signed informed consent to proceed. He was brought to the catheterization laboratory NPO where he was prepped sterilely, and draped. He had been treated with Aspirin and Heparin IV infusion. CORONARY ANGIOGRAM: Arterial access was obtained without difficulty in the right common femoral artery using fluoroscopic localization over the femoral head and modified Seldinger technique to insert a 10 cm 6-Scottish side-arm sheath. Catheters were advanced and exchanged over a long 0.035 inch J tipped Guidewire. The Left Coronary Artery was imaged using a 6-Scottish JL-3.5 catheter. Initially a JL-4.0 catheter was too large for his aortic root. Then the Right Coronary Artery was imaged with a 6-Scottish JR-4 catheter. At the end of the procedure, a 6-Scottish pigtail catheter was inserted but would not cross the aortic valve easily; and the left ventricle was not entered. PERCUTANEOUS CORONARY INTERVENTION OF PROXIMAL LCX: The diagnostic images were reviewed; and decision made to proceed with urgent PCI of the apparent culprit lesion of his ACS which is a severe 95% tubular, irregular lesion of the Proximal Circumflex with NICOLE-3 flow. For the Intervention, he had received a loading dose of Plavix 600 mg p.o; as well as bolus Heparin IV to achieve therapeutic ACT. He received a fluid bolus of 300 cc normal saline. The Left Coronary Artery was engaged for Intervention with a 6-Scottish JL-3.5 catheter. Initially a Voda-3.5 Guide catheter, and then a Voda-3.0 Guide catheter were both too large for his root. Next, the target lesion was crossed with a BMW Wire -- 0.014 inches x 190 cm -- which was placed distally in the large Left Posterolateral Branch. PREDILATATION: The lesion was pre-dilated with a Trek Balloon -- 2.5 x 15 mm -- inflated tp 8 atmospheres across the lesion. The lesion was improved. STENT: The target lesion was treated with a Xience 3.5 x 18 mm stent which was deployed at 18 atmospheres. Aliquots of NTG IC were used. There was an excellent angiographic result including some step-up and step-down across the stent; and postdilatation was not necessary. There was an excellent angiographic result with NICOLE-3 flow; no residual lesion; and no angiographic complication evident. Procedure without difficulty. Patient tolerated the procedure well. No complications. A side-arm sheath angiogram showed adequate access for a closure device. Arterial hemostasis was obtained without difficulty using a Perclose device. The patient was transferred from the Catheterization Laboratory, pain free, and in stable condition to the CCU for ongoing care including by the primary Hospitalist Service. I discussed the procedure, findings, and further management considerations with the patient and his Family including ; as well as with Cardiology; and with the Hospitalist Team. FINDINGS: 1. LMCA: The left main coronary artery is large; and without angiographic stenosis. 2. LAD: The Left Anterior Descending Coronary Artery is a large transapical vessel with moderate diffuse plaquing throughout its course. The LAD does not have angiographically significant stenoses except in the Distal LAD prior to the apex where there is a tubular 90% lesion with NICOLE-3 flow. There is a single moderate-sized diagonal branch at the mid LAD (2-2.5 mm diagonal); and there is a Mid Diagonal 90% tubular narrowing with NICOLE-3 flow. 3. LCX: Note large nondominant LCX. The culprit lesion for his ACS is a tubular 95% irregular proximal circumflex lesion, initially with NICOLE-3 flow. The circumflex distribution includes a large posterolateral branch and several smaller OM branches. 4. RCA: Right dominant. The Right Coronary Artery is a moderate to large sized vessel with moderate diffuse atherosclerotic plaquing but no angiographically significant stenoses. The PDA is only moderate sized; and posterolateral branch is also only a moderate sized vessel. 5. Note: Only minimal fluoroscopic calcification in the aortic valve. CONCLUSIONS: 1. PCI -- Resolute JOI of proximal LCX culprit lesion -- 3.5 x 18 mm deployed at high pressure. 2. ACS -- NSTEMI. 3. CAD (Coronary Artery Disease) -- Two-Vessel CAD, including Proximal LCX revascularized; and Mid Diagonal lesions; and Distal/Apical LAD lesion. RECOMMENDATIONS: 1. ECASA -- Indefinitely. 2. Plavix -- Fpr one year if well tolerated, including ongoing Cardiology follow-up. I discussed with the patient and his the critical importance of mandatory Plavix, and not to stop for any reason without immediate Cardiology consultation. 3. OMT--Optimal medical therapy: Guideline directed medical therapy including additionally beta mukesh; ACEI; and statin. 4. Reassess Atrial Fibrillation -- if he has ongoing atrial fibrillation and if he is felt to require ongoing anticoagulation, this can be considered in the context of the bleeding risk of his dual antiplatelet therapy. 5. Regarding his additional coronary lesions, they can be followed clinically; and appear not likely to require intervention unless symptomatic (which also appears not likely). MTDD
--- NOTE | 2016-10-26 21:31 | PCM.PNMED ---
Subjective Date of Service Oct 26, 2016 Subjective The patient has no further chest pain. However, he has just been resting in bed. He has no other new complaints other than the would like to eat. He realizes that he is on a nothing by mouth status until after his procedure. Exam Vital Signs Vital Sign - Last Date Time Temp Pulse Resp B/P Pulse Ox O2 Delivery O2 Flow Rate FiO2 10/26/16 18:30 85 20 134/91 10/26/16 13:37 36.7 95 Room Air Intake and Output 10/25/16 10/25/16 10/26/16 Cumulative From/Thru 15:00 23:00 07:00 10/25/16 15:02 - 10/26/16 05:07 Intake Total 1900 ml 1098 ml 2998 ml Output Total 350 ml 350 ml Balance 1900 ml 748 ml 2648 ml IV Total 1900 ml 1098 ml 2998 ml Output Urine Total 350 ml 350 ml # Voids 1 1 Exam General: Patient is in no apparent distress lying supine flat in bed. He is complaining of being hungry. HEENT: Head is atraumatic normocephalic. Eyes: Pupils are equally round and reactive to light and accommodation. Extraocular muscles are intact. Sclera are white anicteric. Subconjunctival mucosa is pink. Ears and nose are unremarkable. Oropharynx: There are no mucosal lesions, there is no thrush, there is no pharyngitis. Neck: Is supple, there are no nodes or masses or tenderness. Chest: Is clear to auscultation and percussion. There are no rales, rhonchi, wheezes or rubs. Heart: Rate rhythm is regular. There is a grade 1 to 2/6 systolic ejection murmur heard best at left sternal border. There is no rub or gallop. Abdomen: Good bowel sounds are present. Abdomen is soft, nontender, no organomegaly or masses were appreciated. Extremities: Are symmetrical and well perfused. There is no edema, there is no cellulitis, no rash. Neurologic: There are no focal neurological deficits. Cranial nerves II through XII are intact. There are no sensory or motor deficits. Psychiatric: Patients mood is calm and shows no sign of agitation. Genital: Deferred Rectal: Deferred Lab and Diagnostics Result Diagram: 10/26/16 1355 10/26/16 0225 Microbiology Blood cultures x 2 pending. . X-Rays, CTs and MRIs X-RAY CHEST ONE VIEW, PORTABLE IMPRESSION: No acute cardiopulmonary disease process. Dictated by: Bertha Young MD, PhD on 10/25/2016 at 18:05 Approved by: Bertha Young MD, PhD on 10/25/2016 at 18:05 . 12-lead ECG EKG: Sinus rhythm, heart rate 85, left axis, normal intervals, normal R-wave progression, no pathological Q waves or acute ischemic changes of his ST elevation or depression. Cardiac Echo Impressions Echocardiogram Report Name: REINIER PÉREZ SStudy Date: 10/26/2016 Heigh t: 71 in Hospital Exam Location: [facility] Weigh t: 210 lb Gender: Male BSA: 2.1 m2 : 1940 Age: 75 yrs Reason For Study: ACUTE NSTEMI Ordering Physician: HOSPITALIST [facility] Performed By: Yahaira Benson Referring Physician: DR. LR, DR. DOMINGUEZ Interpretation Summary ) Mild-moderate concentric left ventricular hypertrophy with normal size and hyperdynaimc left ventricular systolic functoin (EF 70-75%). 2) No obvoius wall motion abnormalities present. 3) Normal right ventricular size and function. 4) Mild to moderate aortic stenosis (valve area 1.3cm2, mean gradient 18mmHg). 5) Elevated right sided filling pressures based on IVC assessment. 6) No prior Echo available for comparison. Additional Diagnostics FINDINGS: 1. LMCA: The left main coronary artery is large and without angiographic stenosis. 2. LAD: The left anterior descending coronary artery is a large transapical vessel with moderate diffuse plaquing throughout its course. The LAD does not have angiographically significant stenoses except in the distal LAD prior to the apex where there is a tubular 90% lesion with NICOLE-3 flow. There is a single moderate-sized diagonal branch at the mid LAD (2-2.5 mm diagonal); and there is a mid diagonal 90% tubular narrowing with NICOLE-3 flow. 3. LCX: Note large nondominant LCX. The culprit lesion for his ACS is a tubular 95% irregular proximal circumflex lesion initially with NICOLE-3 flow. The circumflex distribution includes a large posterolateral branch and several smaller OM branches. 4. RCA: Right dominant. The right coronary artery is a moderate to large sized vessel with moderate diffuse atherosclerotic plaquing but no angiographically significant stenoses. The PDA is only moderate size and posterolateral branches also only moderate sized vessel. 5. Note: Only minimal fluoroscopic calcification in the aortic valve. CONCLUSIONS: 1. PCI -- Resolute JOI of proximal LCX culprit lesion -- 3.5 x 18 mm deployed at high pressure. 2. ACS -- NSTEMI. 3. CAD (coronary artery disease) -- two-vessel coronary disease including proximal left circumflex lesion revascularized; and mid diagonal lesions; and distal/apical LAD lesion. RECOMMENDATIONS: 1. ECASA -- indefinitely. 2. Plavix -- one year of Plavix if well tolerated including ongoing Cardiology followup. I discussed with the patient and his the critical importance of mandatory Plavix, and not to stop for any reason without immediate Cardiology consultation. 3. Optimal medical therapy -- guideline directed medical therapy including beta mukesh, including additionally beta mukesh, NING and statin. 4. Reassess atrial fibrillation -- if he has ongoing atrial fibrillation and if he is felt to require ongoing anticoagulation, this can be considered in the context of his dual antiplatelet therapy. 5. Regarding his additional coronary lesions, they can be followed clinically but appear not likely to require intervention unless symptomatic which also appears not likely. Assessment & Plan Reinier Pérez is a 75-year-old male with a past medical history significant for diabetes mellitus type II, insulin using who was flown in from [place] to [facility] via EMS for generalized weakness and nausea and vomiting. 1. Acute coronary syndrome, probable NSTEMI, present on admission. Active. - The patient presented with generalized weakness secondary to nausea and vomiting the day prior and accompanying dizziness and diaphoresis which in the setting of diabetes may represent anginal equivalent. He denied chest pain or shortness of breath. - Cardiac risk factors include: Hyperlipidemia, diabetes mellitus type II, and probable hypertension. - The patients EKG was equivocal. - Initial troponin 0.160. And began to trend upward Trend serial troponins x 3. - Supplemental oxygen as needed to keep O2 sats > 94%. - Started IV fluids NS at 125 mL/hr. - Nitroglycerin ordered as needed for chest pain. Morphine 1-2 mg every 5 minutes as needed for chest pain not amenable to nitroglycerin. - The patient was given aspirin 324 mg. Plavix was not given as patient may be taken for cardiac catheterization tomorrow morning per cards. - Cardiac heparin drip ordered and will be started once patient is in the room from ED -Discussed with Drs. Miranda and Sonu. Patient was taken to the lab director this afternoon by Dr. Ascencio and the culprit lesion for causing the acute coronary syndrome was found in the left circumflex and a stent was deployed in this area with success. -Patient tolerated the procedure well and was placed in the cardiac care unit for post intervention care 2. Sepsis, present on admission. Active. - SIRS criteria met: Febrile 38.1, tachypnea respiratory rate 26, lactic acid 2.8, probable source left foot nonpurulent cellulitis and possible food poisoning. - Early goal directed therapy was met including IV antibiotics and fluid resuscitation. - Patient presented with generalized weakness. 3. Nonpurulent cellulitis, present on admission. Active. With lymphangitic spread worsening on current therapy. - The patient has been treated for cellulitis as an outpatient with unknown antibiotic. However, he stopped the antibiotic as he did not like the side effects. - Patient received vancomycin 1 and Zosyn 1. Ordered cefazolin 1 g every 8 hours to continue treatment nonpurulent cellulitis. However, patient has a entry point for his cellulitis between the first and second toes of his right foot with diffuse cellulitis of the foot with lymphangitic extension proximally to the distal thigh. Therefore I have expanded his antibody coverage to vancomycin, ceftriaxone, Flagyl and Diflucan. I felt it was imperative to give the patient broad-spectrum coverage prior to his needed interventional cardiac cath and potential stent placement. Especially since the patient's stated that the lymphangitic spread was getting worse on current treatment with Ancef. May be able to streamline antibiotics after blood culture results have been obtained - Elevated patient's feet. - IV fluids as above. - Lactic acid elevated at 2.8 in the setting of possible NSTEMI. We will continue to monitor every 2 hours until under 2.0. - Ordered pro-calcitonin, pending. - Blood cultures 2 pending. 4. Possible food poisoning, present on admission. Resolving. - Patient reports he began having nausea and vomiting after he ate lunch at a restaurant which subsided yesterday night at 21:00. - Supportive management including IV fluids. - Viral respiratory PCR as there have been several outbreaks of Norovirus which fit his presentation. 5. Hypomagnesemia, present on admission. Active. - Ordered 2 g magnesium for electrolyte repletion. Continue to monitor daily. 6. New onset atrial fibrillation -We will start Lovenox per pharmacy -We will start Coumadin per pharmacy -We will discuss further with cardiology. Chronic problems: Diabetes mellitus type II, insulin using, chronic. - The patient reports that he is not always compliant with his diabetic medication/insulin. - Patient reports his last hemoglobin A1c was 7.1%. Ordered hemoglobin A1c, pending. - Ordered regular insulin medium dose correction scale insulin as patient will be nothing by mouth. - When appropriate for by mouth intake may be put on a carbohydrate consistent/ heart healthy diet and correctional scale insulin may be switched to Lispro. - Continue home Lantus 30 units in the morning and 20 units at night when taking in PO. Hyperlipidemia, chronic. - Not medically managed as an outpatient -Patient started on Lipitor 80 mg by mouth daily -Consider addition of coenzyme Q Depression, chronic. - Continue Paroxetine 20 mg daily. PRN antiemetics: Zofran and Maalox. PRN bowel regimen: Senna and MiraLAX. PRN analgesics: Tylenol. High risk medications: Morphine. Patient is admitted under inpatient status with expected length of stay greater than 2 midnights due to severity of presenting symptoms, risk of adverse event, and complexity of treatment plan. . Pain Evaluation: Adequate Pain Control GI Prophylaxis: Proton Pump Inhibitor VTE Prophylaxis: Sub-Q Enoxaparin Resuscitation Status: CPR: Attempt Resuscitation Ruddy Abdalla MD Oct 26, 2016 21:31
[2016-10-26 21:47] LABS: INR 1.03 ratio
[2016-10-26] MEDS ORDERED: Furosemide 10 mg/mL 4 mL Inj IVPUSH ONE (23:05)
[2016-10-27] VITALS (10 sets, daily range): BP systolic 103–216; BP diastolic 56–98; PULSE 75–114; RESP 22–36; O2SAT 93–99
[2016-10-27] MEDS: metroNIDAZOLE Inj 500 MG in IV Premix 1 EACH IV SCH ×4 (00:16→23:39)
[2016-10-27 03:00] LABS: INR 1.02 ratio
[2016-10-27 03:07] LABS: Magnesium 2.2 mg/dL (1.6-2.6); Phosphorus 3.9 mg/dL (2.5-4.9)
[2016-10-27 03:16] LABS: BASOPHILS % (AUTO) 0.1 % (0-3); EOSINOPHILS % (AUTO) 0 % (0-5); MONOCYTES % (AUTO) 6.8 % (4-12); Mean Corpuscular Volume 90.4 fL (81-100); NEUTROPHILS % (AUTO) 85.2 % (40-74); Platelet Count 146 bil/L (150-400)
[2016-10-27] MEDS: Vancomycin Dose per Pharmacist XX SCH (07:16)
[2016-10-27] MEDS: Pantoprazole 40 mg ER24 Tablet PO SCH ×2 (07:30→09:32)
[2016-10-27] MEDS: Insulin Human REGular 300 Unit/3 mL Inj SUBQ SCH ×4 (09:30→21:21)
[2016-10-27] MEDS: PARoxetine 20 mg Tablet PO SCH (09:31)
[2016-10-27] MEDS: Insulin GLARgine 100 Unit/mL Syringe SUBQ SCH ×2 (09:32→21:05)
[2016-10-27] MEDS: Fluconazole Inj 200 MG in IV Premix 1 EACH IV SCH (09:57)
[2016-10-27] MEDS: cefTRIAXone Inj 2,000 MG in IV Premix 1 EACH IV SCH (09:57)
[2016-10-27] MEDS ORDERED: Vancomycin Serum Trough XX ONE (12:00)
--- NOTE | 2016-10-27 12:02 | PCM.PNMED ---
Subjective Date of Service Oct 27, 2016 Subjective This AM had some SOB, sats in the low 90's. With repositioning SOB improved. No significant cough at this time. No furter chest pain, no other new problems. The foot is about the same to patient and . Currentley on full dose lovenox awaiting a therapeutic INR. Exam Vital Signs General; Comfortable, NIAD HEENT; IMAN, mouth clear and well hydrated Neck; no overt JVD, large however Cardiac, soft systolic mummer, Lungs; few bibasilar crackles, no wheezing, good air movement Abdo; soft benign Extremities; no edema of significance, redness of left leg is resolving from the ink margins superiorly, however the foot/ankle area remains red and hot, non -purulent. Neuro; CN 2-12 intact, no gross motoer or sensory defects noted Vital Sign - Last Date Time Temp Pulse Resp B/P Pulse Ox O2 Delivery O2 Flow Rate FiO2 10/27/16 09:00 Supplement Oxygen 10/27/16 09:00 38.3 89 36 168/98 93 3.00 Intake and Output 10/26/16 10/26/16 10/27/16 Cumulative From/Thru 15:00 23:00 07:00 10/25/16 15:02 - 10/27/16 06:23 Intake Total 150 ml 200 ml 1991 ml 5339 ml Output Total 300 ml 400 ml 625 ml 1675 ml Balance -150 ml -200 ml 1366 ml 3664 ml Intake Oral 150 ml 200 ml 500 ml 850 ml IV Total 1491 ml 4489 ml Output Urine Total 300 ml 400 ml 625 ml 1675 ml # Voids 1 2 # Bowel Movements 0 0 Lab and Diagnostics Result Diagram: 10/27/16 0230 10/27/16 0230 Microbiology Blood cultures x 2 pending. . X-Rays, CTs and MRIs X-RAY CHEST ONE VIEW, PORTABLE IMPRESSION: No acute cardiopulmonary disease process. Dictated by: Bertha Young MD, PhD on 10/25/2016 at 18:05 Approved by: Bertha Young MD, PhD on 10/25/2016 at 18:05 . 12-lead ECG EKG: Sinus rhythm, heart rate 85, left axis, normal intervals, normal R-wave progression, no pathological Q waves or acute ischemic changes of his ST elevation or depression. Cardiac Echo Impressions Echocardiogram Report Name: REINIER PÉREZ SStudy Date: 10/26/2016 Heigh t: 71 in Hospital Exam Location: [facility] Weigh t: 210 lb Gender: Male BSA: 2.1 m2 : 1940 Age: 75 yrs Reason For Study: ACUTE NSTEMI Ordering Physician: HOSPITALIST [facility] Performed By: Yahaira Benson Referring Physician: DR. LR, DR. DOMINGUEZ Interpretation Summary ) Mild-moderate concentric left ventricular hypertrophy with normal size and hyperdynaimc left ventricular systolic functoin (EF 70-75%). 2) No obvoius wall motion abnormalities present. 3) Normal right ventricular size and function. 4) Mild to moderate aortic stenosis (valve area 1.3cm2, mean gradient 18mmHg). 5) Elevated right sided filling pressures based on IVC assessment. 6) No prior Echo available for comparison. Additional Diagnostics FINDINGS: 1. LMCA: The left main coronary artery is large and without angiographic stenosis. 2. LAD: The left anterior descending coronary artery is a large transapical vessel with moderate diffuse plaquing throughout its course. The LAD does not have angiographically significant stenoses except in the distal LAD prior to the apex where there is a tubular 90% lesion with NICOLE-3 flow. There is a single moderate-sized diagonal branch at the mid LAD (2-2.5 mm diagonal); and there is a mid diagonal 90% tubular narrowing with NICOLE-3 flow. 3. LCX: Note large nondominant LCX. The culprit lesion for his ACS is a tubular 95% irregular proximal circumflex lesion initially with NICOLE-3 flow. The circumflex distribution includes a large posterolateral branch and several smaller OM branches. 4. RCA: Right dominant. The right coronary artery is a moderate to large sized vessel with moderate diffuse atherosclerotic plaquing but no angiographically significant stenoses. The PDA is only moderate size and posterolateral branches also only moderate sized vessel. 5. Note: Only minimal fluoroscopic calcification in the aortic valve. CONCLUSIONS: 1. PCI -- Resolute JOI of proximal LCX culprit lesion -- 3.5 x 18 mm deployed at high pressure. 2. ACS -- NSTEMI. 3. CAD (coronary artery disease) -- two-vessel coronary disease including proximal left circumflex lesion revascularized; and mid diagonal lesions; and distal/apical LAD lesion. RECOMMENDATIONS: 1. ECASA -- indefinitely. 2. Plavix -- one year of Plavix if well tolerated including ongoing Cardiology followup. I discussed with the patient and his the critical importance of mandatory Plavix, and not to stop for any reason without immediate Cardiology consultation. 3. Optimal medical therapy -- guideline directed medical therapy including beta mukesh, including additionally beta mukesh, NING and statin. 4. Reassess atrial fibrillation -- if he has ongoing atrial fibrillation and if he is felt to require ongoing anticoagulation, this can be considered in the context of his dual antiplatelet therapy. 5. Regarding his additional coronary lesions, they can be followed clinically but appear not likely to require intervention unless symptomatic which also appears not likely. Assessment & Plan Reinier Pérez is a 75-year-old male with a past medical history significant for diabetes mellitus type II, insulin using who was flown in from [place] to Emergency via EMS for generalized weakness and nausea and vomiting. 1. Acute NSTEMI, present on admission. Active. - Patient was taken to the assistant laboratory director by Dr. Ascencio and the culprit lesion for causing the acute coronary syndrome was found in the left circumflex and a stent was deployed in this area with success. - asa, plavix, lipitor and amiodarone - close cardiac follow up 2. Sepsis, present on admission. Resolved - SIRS criteria met: Febrile 38.1, tachypnea respiratory rate 26, lactic acid 2.8, probable source left foot nonpurulent cellulitis and possible food poisoning. - Early goal directed therapy was met including IV antibiotics and fluid resuscitation. - Patient presented with generalized weakness. 3. Nonpurulent cellulitis left foot, present on admission. Active. - The patient has been treated for cellulitis as an outpatient with unknown antibiotic. However, he stopped the antibiotic as he did not like the side effects. - Originally placed on IV cefazolin 1 g every 8 hours to continue treatment nonpurulent cellulitis. However, patient has a entry point for his cellulitis between the first and second toes of his right foot with diffuse cellulitis of the foot with lymphangitic extension proximally to the distal thigh. Therefore I have expanded his antibody coverage to vancomycin, ceftriaxone, Flagyl and Diflucan. I felt it was imperative to give the patient broad-spectrum coverage prior to his needed interventional cardiac cath and potential stent placement. Especially since the patient's stated that the lymphangitic spread was getting worse on current treatment with Ancef. May be able to streamline antibiotics after blood culture results have been obtained - will image the foot ankle with MRI -repeat CBC, procal in AM, consider ID consult 4. Possible food poisoning, present on admission. Resolved. - Patient reports he began having nausea and vomiting after he ate lunch at a restaurant which subsided yesterday night at 21:00. - Supportive management including IV fluids. - Viral respiratory PCR as there have been several outbreaks of Norovirus which fit his presentation. 5. Hypomagnesemia, present on admission. resolved. - Ordered 2 g magnesium for electrolyte repletion. Continue to monitor daily. 6. New onset atrial fibrillation - full dose bridging lovenox - coumadin started, check PT daily . Chronic problems: Diabetes mellitus type II, insulin using, chronic. - The patient reports that he is not always compliant with his diabetic medication/insulin. - Patient reports his last hemoglobin A1c was 7.1%. Ordered hemoglobin A1c = 7.9. - Continue home Lantus 30 units in the morning and 20 units at night when eating , continue correction insulin Hyperlipidemia, chronic. - Not medically managed as an outpatient -Patient started on Lipitor 80 mg by mouth daily -Consider addition of coenzyme Q Depression, chronic. - Continue Paroxetine 20 mg daily. PRN antiemetics: Zofran and Maalox. PRN bowel regimen: Senna and MiraLAX. PRN analgesics: Tylenol. High risk medications: Morphine, coumadin Patient is admitted under inpatient status with expected length of stay greater than 2 midnights due to severity of presenting symptoms, risk of adverse event, and complexity of treatment plan. . GI Prophylaxis: Proton Pump Inhibitor VTE Prophylaxis: Sub-Q Enoxaparin Resuscitation Status: CPR: Attempt Resuscitation Ron Neal MD Oct 27, 2016 12:01 PRN antiemetics: Zofran and Maalox. PRN bowel regimen: Senna and MiraLAX. PRN analgesics: Tylenol. High risk medications: Morphine. Patient is admitted under inpatient status with expected length of stay greater than 2 midnights due to severity of presenting symptoms, risk of adverse event, and complexity of treatment plan. . GI Prophylaxis: Proton Pump Inhibitor VTE Prophylaxis: Sub-Q Enoxaparin Resuscitation Status: CPR: Attempt Resuscitation Ron Neal MD Oct 27, 2016 12:01
--- NOTE | 2016-10-27 13:03 | DRSVH ---
PROCEDURE: X-RAY CHEST ONE VIEW, PORTABLE ([id number]) INDICATIONS: SHORTNESS OF BREATH TECHNIQUE: One view of the chest was acquired. COMPARISON: [facility], CR, XR CHEST 1VW (PORTABLE), 10/25/2016, 15:21. FINDINGS: Surgical changes and devices: None. Lungs and pleura: No pleural effusions or pneumothorax. Lungs are clear. Cephalization of pulmonary vasculature suspicious for CHF. Mediastinum: Mediastinal contours appear normal. Heart size is normal. Bones and chest wall: No suspicious bony lesions. Overlying soft tissues appear unremarkable. IMPRESSION: Findings suspicious for CHF. Please correlate with clinical data. Dictated by: Bertha Young MD, PhD on 10/27/2016 at 13:01 Approved by: Bertha Young MD, PhD on 10/27/2016 at 13:01
--- NOTE | 2016-10-27 13:05 | NUR ---
TRANSFER TO PCC W/ TELE Received orders for patient to transfer to PCC status w/ tele. Patient has been stable since previous shift. Groin site is C/D/I, no bruising or hematoma present, no drainage noted. He has reported intermittent SOB and increased work of breathing, but this has since resolved, and patient turned to left side to help w/ this issue. Report given to Anitha Quiles RN on PCC, who will assume care of patient.
--- NOTE | 2016-10-27 14:24 | PCM.PHAPRO ---
Progress Generalized weakness. . Vancomycin trough returned at 15.3 today, just within the lower end of the goal of 15-20. I expect trough creep and will recheck another level at noon on . Kemi Tillman [facility] Oct 27, 2016 14:24
--- NOTE | 2016-10-27 16:01 | NUR ---
OFF unit PT off unit for MRI, vitals stable other than RR 28 at 98%. 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
--- NOTE | 2016-10-27 16:12 | NUR ---
Social Work: Attempted Assessment D: Per EMR review, pt is a 75 year old male admitted for diabetic foot infection and elevated troponin. Pt is [employer]. PCP is Sandeep Reyes MD. NOK Is Kitty Calixto, , . Readmit score is low, 2/8. TURKEY EGG GATHERER attempted to meet with pt at bedside. Pt off the floor at this time for procedure. A: Pt who is from [place]. P: TURKEY EGG GATHERER to continue to follow up with pt to complete assessment and dcp. TAE Longo
--- NOTE | 2016-10-27 17:24 | DRSVH ---
PROCEDURE: MRI FOREFOOT LEFT WITH AND WITHOUT CONTRAST ([id number]) INDICATIONS: pain reddness TECHNIQUE: Noncontrast sagittal T1 spin echo and T2 fast spin echo with fat saturation, long-axis T1 spin echo a nd T2 fast spin echo with fat saturation; short-axis T1 spin echo, proton density fast spin echo, and T2 fast spin echo with fat saturation through the forefoot. Post-contrast short axis, long axis, an d sagittal T1 spin echo with fat saturation through the forefoot. COMPARISON: None. FINDINGS: Image quality: There is uncontrollable motion artifact which degrades the study. Bones and joints: No suspicious osseous enhancement. No bone marrow contusions or metatarsal stress fractures. The sesamoid bones appear in expected positions, without internal edema. Mild first meta tarsophalangeal joint degeneration. No intraosseous lesions. The lesser toes are not well seen due to flexion, and motion artifact. If clinically warranted, consider radiographic evaluation. Soft tissues: No suspicious soft tissue enhancement. There is diffuse dorsal forefoot and midfoot copeland bcutaneous soft tissue swelling and fluid. No rim-enhancing abscess seen. The visualized plantar foot muscles demonstrate normal signal and bulk. Visualized flexor and exten sor tendons appear intact, without tenosynovitis. No soft tissue ganglion cysts or bursal fluid niles ections. Sagittal images demonstrate no evidence for plantar plate tears. IMPRESSION: Severe dorsal midfoot and forefoot soft tissue swelling and edema/fluid. No rim-enhancing abscess. No marrow signal changes or abnormal enhancement to suggest osteomyelitis. Dictated by: Monty Cerrato M.D. on 10/27/2016 at 17:22 Approved by: Monty Cerrato M.D. on 10/27/2016 at 17:22
--- NOTE | 2016-10-27 17:37 | DRSVH ---
PROCEDURE: MRI ANKLE LEFT WITH AND WITHOUT CONTRAST ([id number]) INDICATIONS: pain redness TECHNIQUE: Noncontrast sagittal T1 spin echo and T2 fast spin echo with fat saturation, axial proton density fas t spin echo and T2 fast spin echo with fat saturation, axial T1 spin echo with fat saturation, anderson l T1 spin echo and T2 fast spin echo with fat saturation through the ankle/hindfoot. Post-contrast a xial, coronal, and sagittal T1 spin echo with fat saturation through the ankle/hindfoot. COMPARISON: None. FINDINGS: Image quality: Excellent. Bones and joints: No suspicious osseous enhancement. No bone marrow contusions or fractures. No hi ndfoot coalitions. Mild tibiotalar joint degeneration. No osteochondral injuries of the talar dome. No pathologic joint effusions. Medial structures: The posterior tibialis, flexor digitorum longus, and flexor hallucis longus tendo ns are intact. The posterior tibial neurovascular bundle appears normal within the tarsal tunnel, wi thout extrinsic mass effect. The deep layer (anterior and posterior tibiotalar ligaments) and superf icial layer (tibionavicular, tibiospring, and tibiocalcaneal ligaments) of the deltoid ligament appea r normal. The spring ligament components (superomedial calcaneonavicular, medioplantar oblique calca neonavicular, and inferoplantar longitudinal ligaments) are intact. Lateral structures: The anterior talofibular, calcaneofibular, and posterior talofibular ligaments a ppear intact. More superiorly, the anterior and posterior tibiofibular ligaments appear normal, as i s the intermalleolar ligament. The tibiofibular syndesmosis is normal in width at 2 mm or less. The peroneus longus and brevis tendons demonstrate normal location and morphology. There is mild adjace nt fluid. Adjacent bony peroneal tubercle and retrotrochlear prominence are normal in size. The sinus tarsi de monstrates normal fatty signal, without edema, fibrosis, or cyst formation. Visualized sinus tarsi c omponents (cervical ligament, interosseous talocalcaneal ligament, roots of the inferior extensor ret inaculum) appear normal. Anterior structures: The tibialis anterior, extensor hallucis longus, and extensor digitorum longus tendons appear intact. There is diffuse dorsal midfoot/hindfoot and circumferential ankle soft tissu e swelling and edema. There is mild ill-defined reactive enhancement without rim-enhancing abscess. Posterior and plantar structures: Achilles tendon is intact. Medial and lateral bands of the planta r fascia are of normal thickness. No abductor digiti quinti muscle atrophy to suggest Lopez neuropa thy. IMPRESSION: Dorsal midfoot/hindfoot and circumferential ankle subcutaneous cellulitis. No definite abscess identi fied. No marrow signal changes or abnormal enhancement to suggest osteomyelitis. Mild peroneal tenosynovitis. Dictated by: Monty Cerrato M.D. on 10/27/2016 at 17:36 Approved by: Monty Cerrato M.D. on 10/27/2016 at 17:36
--- NOTE | 2016-10-27 17:56 | NUR ---
Respiratory PT C/O problems with breathing and pain on his left side when breathing in. MD made aware, chest Xray clear, possible CHF, NC 5L 99% RR 30's with grunting sounds while breathing. EKG ordered and confirmed the pt is in SR 74. MD paged later after the pt got back from MRI asking for IV anxiety medications hoping to see if that will help. No word back yet. Will continue to monitor.
[2016-10-27] MEDS ORDERED: Furosemide 10 mg/mL 2 mL Inj IVPUSH STA (18:04)
[2016-10-27] MEDS ORDERED: LORazepam 0.5 mg Tablet PO PRN (18:05)
--- NOTE | 2016-10-27 21:49 | ABG ---
DateTimeAnalyzed 21:45:00 -_ pH ____7.358 - 7.350 7.450 pCO2 ___44.2__ -mmHg 35.0 45.0 pO2 ___78.3__ -mmHg 69.0 116 HCO3- ___24.2__ -mmol/L 22.0 26.0 ABE ___-0.8__ -mmol/L -2.0 2.0 tHb ___11.3__ -g/dL O2Hb ___93.9__ -% COHb ____1.0__ -% MetHb ____1.2__ -% sO2 ___96.0__ -% 25.0 FIO2 ___32.0__ -% Drawn By AF - Liter_Flow ____4.0__ -L/min Oxygen Device 1 __CANNULA - Notified By af - Notified Whom ____Nurse - B 752 -mmHg tO2 ___15.0__ -Vol% Man test _Positive -
[2016-10-27] MEDS ORDERED: Furosemide 10 mg/mL 2 mL Inj IV ONE (22:00)
[2016-10-27] MEDS ORDERED: Furosemide 10 mg/mL 2 mL Inj IVPUSH ONE (22:55)
[2016-10-28] VITALS (8 sets, daily range): BP systolic 139–178; BP diastolic 68–81; PULSE 69–93; RESP 18–33; O2SAT 94–99
[2016-10-28] MEDS ORDERED: Labetalol 5 mg/mL 4 mL Inj IVPUSH ONE (00:50)
--- NOTE | 2016-10-28 01:03 | PROG NOTE ---
[address] [address] PROGRESS NOTE PATIENT: REINIER QUESADA : 1940 MR#: [id number] ADMIT: 10/25/2016 JOB ID: [id number] CARDIOLOGY CONSULTATION NOTE--FOLLOW-UP INPATIENT EVALUATION: DATE: Thursday, October 27, 2016 CONSULTING PHYSICIAN: Cardiology - Ralf Ascencio MD PROBLEMS: 1. ACS; CAD; and PCI LCX 24 hours ago. 2. Atrial Fibrillation--New onset; now resolved. 3. Multisystem Illnesses--Including Diabetes; presenting with initial nausea and vomiting suggestive of gastroenteritis (resolving); and also left lower extremity cellulitis with fever(meeting criteria for Sepsis on admission). SUBJECTIVE: I saw Mr. Quesada on Cardiology rounds this morning, Friday, October 27, 2016, along with his . HOSPITAL COURSE: Overall, he is doing well from a Cardiology point of view after diagnostic coronary angiogram yesterday identified a culprit proximal circumflex lesion that was responsible for his acute coronary syndrome with elevated troponin in the setting of atypical presenting symptoms without chest pain but with nausea, vomiting, weakness that may have been due to multifactorial etiology. Today, he is overall clinically stable and much improved. Specifically, from a Cardiology point of view, there are no overt cardiac symptoms or problems, and he is recuperating well from his Percutaneous Coronary Intervention yesterday. His right lower extremity access site is reported to be intact and without a problem. He has been up to the bathroom, but otherwise not ambulatory yet. OBJECTIVE: EXAM: Elderly man, lying comfortably in bed. He is alert now. Vital signs: Note there was significant fever and maximum temperature reached 38.3 this morning. Blood pressure is stable with intermittent episodes of blood pressure to maximum 168/98; but otherwise not consistently elevated. Respiratory rate 18, nonlabored. Examination unchanged and unremarkable, with regular rhythm, S4. No loud murmur now. Lungs with diminished breath sounds bilaterally without rales. Extremities: The right lower extremity is fully intact at the right common femoral artery access site which was closed with Perclose. It appears excellent with no ecchymosis or hematoma. There is a palpable pulse. No pulsatile masses. No bruits. Peripheral perfusion in the right lower extremity is intact, although the distal pulses were not palpable. Capillary refill is intact and the extremity is warm. DIAGNOSTIC STUDIES: ELECTROCARDIOGRAM: The follow up ECG is unremarkable. LABORATORY: Note, WBC 11,300. INR 1.02. Chemistries satisfactory, including potassium 3.9, and creatinine 1.14. LFTs unremarkable. ASSESSMENT/RECOMMENDATIONS: 1. Acute Coronary Syndrome; Post PCI--Day-1: Acute coronary syndrome with vcw-LF-slbxgidid myocardial infarction on admission: From the point of view of the primary cardiac issue of acute coronary syndrome, he is doing well. OMT--Recommend optimal medical therapy: I re-emphasized to the patient and his the critical importance of mandatory dual platelet anticoagulation with aspirin and Plavix, and we also discussed the risk of bleeding, especially with the addition of Coumadin if needed for atrial fibrillation. Initiate beta-mukesh. BUN and creatinine stable after contrast media, and reinitiate the NING inhibitor. During this admission, we optimized his medical therapy to now include aspirin and chronic statin. 2. Atrial Fibrillation: His atrial fibrillation was asymptomatic and well tolerated clinically with only moderately elevated ventricular rate with now return to sinus rhythm after initiation of amiodarone 400 mg b.i.d. yesterday. I discussed with the Patient and his and with the Hospitalist Service regarding this episode of atrial fibrillation which raises complex issues. The atrial fibrillation may be a transient episode only present during the stress of the current illness. However, it seems that it may more likely represent underlying chronic atrial fibrillation has become evident now while he is under telemetry monitoring. We discussed, and the decision had been made to begin anticoagulation with Coumadin, using Lovenox bridging. We discussed anticoagulation management to include reassessment in Cardiology Clinic to consider discontinuing aspirin after six weeks with continuing Plavix, and Coumadin if chronic atrial fibrillation is found (according to WOEST study). We discussed the risk of stroke and recommended ongoing follow-up including in Cardiology Clinic in consideration of long-term Holter monitoring for one month to search for ongoing episodes of atrial fibrillation. If no atrial fibrillation is found after extensive monitoring, then might re- consider discontinuing anticoagulation. Otherwise note levated CHADS risk score. Amiodarone Therapy--this was initiated with loading dose. Recommend close early follow-up by primary physician, and Cardiology Clinic to adjust to a low maintenance dose--likely 200 mg amiodarone daily--after several days to a week. Reconsider ongoing vs. DC Amiodarone. 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 If the amiodarone is continued, he will need baseline parameters for monitoring for amiodarone toxicity. Recommend TSH and free T4 now, as well as follow up liver function tests, and consideration of PFT and eye exam if needed. 3. Cellulitis: Note your ongoing evaluation for cellulitis with a plan for antibiotics, Infectious Disease consult, and MRI to exclude osteomyelitis. MTDD
[2016-10-28 02:16] LABS: BASOPHILS % (AUTO) 0.1 % (0-3); EOSINOPHILS % (AUTO) 0 % (0-5); Mean Corpuscular Hemoglobin 31.1 pg (27.0-35.0); Mean Corpuscular Volume 89.6 fL (81-100); NEUTROPHILS % (AUTO) 84.6 % (40-74); Platelet Count 161 bil/L (150-400)
[2016-10-28 02:33] LABS: D-DIMER 0.8 mg/L (<0.50); INR 1.13 ratio
[2016-10-28] MEDS ORDERED: Potassium Chloride 20 mEq SR Tablet PO ONE (03:20)
[2016-10-28] MEDS ORDERED: Furosemide 10 mg/mL 4 mL Inj IVPUSH ONE (04:25)
--- NOTE | 2016-10-28 05:29 | NUR ---
resp status, took pt over at approx 2200, imcu status, pt drowsy post ativan doses given prior to taking over pt care, pt oriented times three, kobe, tele- sr, pac's,bp hypertensive, aware, lasix given, labetolol given and lopressor and lisinopril ordered for am, labetolol effective,pt's bp down from 170-180 systolic to one teens and then averaged out systolic in 140-150 range, ls- extemely decreased initially with faint crackles, now lung sounds improved and can hear crackles scattered t/o, lasix given again this am, resp rate initally in mid 30's now in high 20's to low 30's, seasaw type respiratory pattern, md aware, improved this am also, intermittent grunting with resp, hob up, pt initially on 5 liters o2 per nc when abg's done, now on three liters o2 with sats in mid 90's, cxr done, pt initially only able to few words at a time now able to speak in full sentences, aware of lab results, kcl given po and lasix given iv, venous doppler ordered for 0700 per md, pt on lovenox, mrsa swab sent to lab, aware of am lab results, condom cath on, needed to be replaced couple times for coming off, left foot reddened and pitting edema, left calf less reddened in outlined area, see assessment charting,
--- NOTE | 2016-10-28 06:19 | NUR ---
output pt had 1000ml out per condom cath, 3 large incontinent voids per brief, condom cath secured but still slips off from time to time, pt resting/asleep comfortably now,
--- NOTE | 2016-10-28 07:02 | DRSVH ---
PROCEDURE: X-RAY CHEST ONE VIEW, PORTABLE ([id number]) INDICATIONS: 75-year-old male with respiratory distress. TECHNIQUE: One view of the chest was acquired. COMPARISON: [facility], CR, XR CHEST 1VW (PORTABLE), 10/27/2016, 12:26. [facility], CR, XR CHEST 1VW (PORTABLE), 10/25/2016, 15:21. FINDINGS: Surgical changes and devices: None. Lungs and pleura: No pleural effusions or pneumothorax. There is interval increased degree of pulmon megan interstitial prominence, along with patchy airspace opacities bilaterally. Mediastinum: Mediastinal contours appear normal. Heart size is normal. Bones and chest wall: No suspicious bony lesions. Overlying soft tissues appear unremarkable. IMPRESSION: Findings suspicious for increasing pulmonary edema and/or bronchopneumonia. Dictated by: Ethan Esposito M.D. on 10/28/2016 at 7:01 Approved by: Ethan Esposito M.D. on 10/28/2016 at 7:01
--- NOTE | 2016-10-28 07:43 | DRSVH ---
PROCEDURE: US VENOUS LEG DUPLEX BILATERAL INDICATIONS: 75-year-old male with bilateral leg swelling. Assess for deep venous thrombosis. TECHNIQUE: Real-time imaging, as well as color and pulse Doppler interrogation, were performed of the deep veins of both legs from the inguinal ligament to the popliteal fossa. COMPARISON: None. FINDINGS: The deep veins are normally compressible, and free of intraluminal thrombus. Color and pu lse Doppler demonstrate normal phasic intravascular flow. There is normal augmentation response to d istal compression maneuver. IMPRESSION: No sonographic evidence for lower extremity deep venous thrombosis. Dictated by: Ethan Esposito M.D. on 10/28/2016 at 7:41 Approved by: Ethan Esposito M.D. on 10/28/2016 at 7:41
[2016-10-28] MEDS: PARoxetine 20 mg Tablet PO SCH (08:27)
[2016-10-28] MEDS: Pantoprazole 40 mg ER24 Tablet PO SCH (08:27)
[2016-10-28] MEDS: metroNIDAZOLE Inj 500 MG in IV Premix 1 EACH IV SCH (08:29)
[2016-10-28] MEDS: Insulin Human REGular 300 Unit/3 mL Inj SUBQ SCH ×4 (08:43→22:16)
[2016-10-28] MEDS: Insulin GLARgine 100 Unit/mL Syringe SUBQ SCH ×2 (08:43→22:14)
[2016-10-28] MEDS: cefTRIAXone Inj 2,000 MG in IV Premix 1 EACH IV SCH (09:24)
[2016-10-28] MEDS: Fluconazole Inj 200 MG in IV Premix 1 EACH IV SCH (10:24)
[2016-10-28] MEDS: Vancomycin Dose per Pharmacist XX SCH (10:26)
[2016-10-28] MEDS: Ceftaroline Inj 600 MG in Dextrose 5% 250 ML IV SCH ×2 (14:41→22:09)
[2016-10-28] MEDS ORDERED: Insulin LISPRO Low-Dose Scale SUBQ PRN (15:10)
--- NOTE | 2016-10-28 16:49 | NUR ---
Social Work Note: Attempted Initial Assessment/Continued Discharge Planning Data& Assessment: Pt is not medically ready for discharge at this time. SW attempted to meet with pt at bedside but pt requested that SW come back tomorrow as he was resting. Per ur coordinator pt is a 2PA at this time and 02 needs are increasing. PT eval pending. SW to follow up with pt regarding discharge planning needs. SW to r/o SNF vs. . SW to continue to follow. Plan: Pt is not medically ready for discharge at this time. SW to follow up with pt regarding discharge planning needs. SW to r/o SNF vs. . SW to continue to follow. TAE Vides
--- NOTE | 2016-10-28 18:09 | NUR ---
and fatigue Condom cath was difficult to secure in place and it leaked. Encouraged pt. to use urinal and pull-up instead since he has control over his bladder. Pt. agreed. Condom cath was discontinued. Pt. was assisted out of bed to BSC once, 1 p assist, he was weak. He also got his sponge bath while he was on the BSC. He returned to bed safely, stated, "I'm tired." He refused physical therapy today because he was too physically exhausted to participate. Physical therapist will return tomorrow.
--- NOTE | 2016-10-28 21:13 | PCM.PNMED ---
Subjective Date of Service Oct 28, 2016 Subjective Pierre Quesada is a 75-year-old male with a past medical history significant for diabetes mellitus type II, insulin using who was flown in from [place] to [facility] via EMS for generalized weakness and nausea and vomiting. The patient reports he ate a chicken enchilada early yesterday afternoon and subsequently started to feel ill. He vomited five times. He reports his nausea and vomiting resolved at 21:00 last night. He had accompanying diaphoresis, dizziness, and chills. He denies headache, chest pain , upper extremity pain, numbness, or tingling, jaw pain, shortness of breath, abdominal pain, dysuria, diarrhea, or constipation. He has also recently had cellulitis of his left foot treated with unknown antibiotic. He comes to the ER this evening for generalized weakness and just not feeling "too hot." He was found to have an elevated troponin of 0.160. His EKG was equivocal. Overnight Events: No acute overnight events. This AM had some SOB, sats in the low 90's. With repositioning SOB improved. Denies cough, chest pain, no other new problems. Erythema from cellulitis on left lower leg has decreased. Currentley on full dose lovenox awaiting a therapeutic INR. . Exam Vital Signs Vital Sign - Last Date Time Temp Pulse Resp B/P Pulse Ox O2 Delivery O2 Flow Rate FiO2 10/28/16 08:25 37.6 75 24 139/68 99 Nasal Cannula 3.00 Intake and Output 10/27/16 10/27/16 10/28/16 Cumulative From/Thru 15:00 23:00 07:00 10/25/16 15:02 - 10/28/16 06:17 Intake Total 1093 ml 960 ml 7392 ml Output Total 500 ml 1000 ml 3175 ml Balance 593 ml -40 ml 4217 ml Intake Oral 290 ml 490 ml 1630 ml IV Total 803 ml 470 ml 5762 ml Output Urine Total 500 ml 1000 ml 3175 ml # Voids 3 5 # Bowel Movements 1 1 2 Exam General; Comfortable, NIAD HEENT; IMAN, mouth clear and well hydrated Neck; no overt JVD, large however Cardiac, soft systolic mummer, Lungs; few bibasilar crackles, no wheezing, good air movement Abdo; soft benign Extremities; no edema of significance, redness of left leg is resolving from the ink margins superiorly, however the foot/ankle area remains red and hot, non -purulent. Neuro; CN 2-12 intact, no gross motoer or sensory defects noted IVs and Medications Medications Reviewed: Medications were reviewed in detail Lab and Diagnostics Result Diagram: 10/28/1620410/28/16204 Microbiology Blood cultures x 2 pending. . X-Rays, CTs and MRIs X-RAY CHEST ONE VIEW, PORTABLE IMPRESSION: No acute cardiopulmonary disease process. Dictated by: Bertha Young MD, PhD on 10/25/2016 at 18:05 . MRI ANKLE LEFT WITH AND WITHOUT CONTRAST IMPRESSION: Dorsal midfoot/hindfoot and circumferential ankle subcutaneous cellulitis. No definite abscess identified. No marrow signal changes or abnormal enhancement to suggest osteomyelitis. Mild peroneal tenosynovitis. Dictated by: Monty Cerrato M.D. on 10/27/2016 at 17:36 12-lead ECG EKG: Sinus rhythm, heart rate 85, left axis, normal intervals, normal R-wave progression, no pathological Q waves or acute ischemic changes of his ST elevation or depression. Cardiac Echo Impressions Interpretation Summary 1) Mild-moderate concentric left ventricular hypertrophy with normal size and hyperdynaimc left ventricular systolic functoin (EF 70-75%). 2) No obvoius wall motion abnormalities present. 3) Normal right ventricular size and function. 4) Mild to moderate aortic stenosis (valve area 1.3cm2, mean gradient 18mmHg). 5) Elevated right sided filling pressures based on IVC assessment. 6) No prior Echo available for comparison. Additional Diagnostics FINDINGS: 1. LMCA: The left main coronary artery is large and without angiographic stenosis. 2. LAD: The left anterior descending coronary artery is a large transapical vessel with moderate diffuse plaquing throughout its course. The LAD does not have angiographically significant stenoses except in the distal LAD prior to the apex where there is a tubular 90% lesion with NICOLE-3 flow. There is a single moderate-sized diagonal branch at the mid LAD (2-2.5 mm diagonal); and there is a mid diagonal 90% tubular narrowing with NICOLE-3 flow. 3. LCX: Note large nondominant LCX. The culprit lesion for his ACS is a tubular 95% irregular proximal circumflex lesion initially with NICOLE-3 flow. The circumflex distribution includes a large posterolateral branch and several smaller OM branches. 4. RCA: Right dominant. The right coronary artery is a moderate to large sized vessel with moderate diffuse atherosclerotic plaquing but no angiographically significant stenoses. The PDA is only moderate size and posterolateral branches also only moderate sized vessel. 5. Note: Only minimal fluoroscopic calcification in the aortic valve. CONCLUSIONS: 1. PCI -- Resolute JOI of proximal LCX culprit lesion -- 3.5 x 18 mm deployed at high pressure. 2. ACS -- NSTEMI. 3. CAD (coronary artery disease) -- two-vessel coronary disease including proximal left circumflex lesion revascularized; and mid diagonal lesions; and distal/apical LAD lesion. RECOMMENDATIONS: 1. ECASA -- indefinitely. 2. Plavix -- one year of Plavix if well tolerated including ongoing Cardiology followup. I discussed with the patient and his the critical importance of mandatory Plavix, and not to stop for any reason without immediate Cardiology consultation. 3. Optimal medical therapy -- guideline directed medical therapy including beta mukesh, including additionally beta mukesh, NING and statin. 4. Reassess atrial fibrillation -- if he has ongoing atrial fibrillation and if he is felt to require ongoing anticoagulation, this can be considered in the context of his dual antiplatelet therapy. 5. Regarding his additional coronary lesions, they can be followed clinically but appear not likely to require intervention unless symptomatic which also appears not likely. Assessment & Plan Pierre Quesada is a 75-year-old male with a past medical history significant for diabetes mellitus type II, insulin using who was flown in from [facility] via EMS for generalized weakness and nausea and vomiting. 1. Acute NSTEMI, present on admission. Active. - Patient was taken to the seed laboratory technician by Dr. Ascencio and the culprit lesion for causing the acute coronary syndrome was found in the left circumflex and a stent was deployed in this area with success. - Dual Anti-platelet therapy: ASA for 6 month then Plavix only as outpatient. - Continue Lipitor. - Cardiology following, time and recommendations appreciated. 2. Nonpurulent cellulitis left foot, present on admission. Improving. - The patient has been treated for cellulitis as an outpatient with unknown antibiotic. - Repeat CBC daily. - Procalcitonin 0.44 - MRI per above. Possible mild peroneal tenosynovitis. - ID consulted, time and recommendations appreciated. - Ceftaroline IV. 3. Sepsis, present on admission. Resolved - SIRS criteria met: Febrile 38.1, tachypnea respiratory rate 26, lactic acid 2.8, probable source left foot nonpurulent cellulitis and possible food poisoning. - Early goal directed therapy was met including IV antibiotics and fluid resuscitation. - Patient presented with generalized weakness. 4. Possible food poisoning, present on admission. Resolved. - Patient reports he began having nausea and vomiting after he ate lunch at a restaurant which subsided yesterday night at 21:00. - Supportive management including IV fluids. - Viral respiratory PCR as there have been several outbreaks of Norovirus which fit his presentation. 5. Hypomagnesemia, present on admission. Resolved. - Ordered 2 g magnesium for electrolyte repletion. Continue to monitor daily. 6. New onset atrial fibrillation - Full dose bridging Lovenox - Coumadin started, check PT daily - Amiodarone currently at 400 with plan to decrease to 200 mg daily per Cards. Chronic problems: Diabetes mellitus type II, insulin using, chronic. - The patient reports that he is not always compliant with his diabetic medication/insulin. - Patient reports his last hemoglobin A1c was 7.1%. Ordered hemoglobin A1c = 7.9. - Continue home Lantus 30 units in the morning and 20 units at night when eating , continue correction insulin - Consulted podiatry for diabetic foot recommendations. Hyperlipidemia, chronic. - Not medically managed as an outpatient -Patient started on Lipitor 80 mg by mouth daily -Consider addition of coenzyme Q Depression, chronic. - Continue Paroxetine 20 mg daily. PRN antiemetics: Zofran and Maalox. PRN bowel regimen: Senna and MiraLAX. PRN analgesics: Tylenol. High risk medications: IV Morphine, PO Coumadin Disposition: Likely here for 1-2 more days. . Pain Evaluation: Adequate Pain Control GI Prophylaxis: Proton Pump Inhibitor VTE Prophylaxis: Sub-Q Enoxaparin Resuscitation Status: CPR: Attempt Resuscitation Attending Statement The patient was seen and examined together with Dr. Oliveira on 10-28-16 and I agree with the history, exam and plan as outlined in the note above. BERTIN OLIVEIRA DO Oct 28, 2016 08:30 Ron Neal MD Oct 29, 2016 16:53
--- NOTE | 2016-10-28 21:53 | CONS ---
[address] [address] CONSULTATION REPORT PATIENT: REINIER PÉREZ : 1940 MR#: [id number] ADMIT: 10/25/2016 JOB ID: [id number] DATE OF SERVICE: 10/28/[address] Neal for this timely consult. 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 He was admitted to this facility. This facility on October 25 with complaint of weakness, nausea, and vomiting which was of relatively sudden onset. During the course of this admission, it was found that the patient has had an acute coronary syndrome and he underwent appropriate therapy and coronary catheterization within the past 48 hours. It was also noticed that he had high fevers, as high as 39.4, in association with chills. The patient states that for three months he has had a persistent left lower extremity cellulitis which has been evaluated and treated by his physician on [place]. He reports that he received some antibiotics with some improvement. Then it got worse again and then more recently was switched to another antibiotic. The names of these antibiotics are unknown at this point. He reports that he has been relatively free of fevers or chills, though and mainly just had trouble with swelling in the left lower extremity below the knee as well as warmth and occasionally chills, but no really overt systemic toxicity until the events of October 25. PAST MEDICAL HISTORY: 1. 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 2. Hyperlipidemia. 3. Left lower extremity cellulitis. 4. Note, that the patient has not had a total knee replacement. Though this is stated in his admission H and P. He has arthritis in his left knee but no joint replacement has been done. SOCIAL HISTORY: The patient retired from [employer] in his late 40s and moved to the [facility] area. 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 He does not smoke and does not drink significant amounts of alcohol. He is able to ambulate fairly well except for his left knee arthritis. FAMILY HISTORY: Negative for TB. REVIEW OF SYSTEMS: The patient has some minimal headache right now. He also notes that his vision is a little bit blurry; but it has been for a while, and it is thought to be due to diabetes. No sore throat or oral complaints. No stiff neck. No significant cough or shortness of breath. He did not have chest pain as he had a rather atypical presentation with his coronary syndrome, and he still has no chest pain. He has noticed some very mild right upper quadrant tenderness, and he denies any preceding history of gallbladder disease. He did have nausea and vomiting before coming in; but these have resolved. No diarrhea. No dysuria. PHYSICAL EXAMINATION: Physical exam reveals an afebrile gentleman, temperature 37.7. Note that he was as high as 39.4 shortly after admission late on October 25. Pulse 72, respiratory rate 18, blood pressure 144/79. He is saturating 95% on 2 L. The patient is a little bit sleepy but easily arouses and is fully oriented and able to give a good history. Examination of the head shows no trauma. Eyes without conjunctival or scleral abnormalities. Oral cavity without thrush or hairy leukoplakia. Neck without adenopathy. Cardiac tones are regular rate and rhythm today, though he has been in AFib apparently in the past couple of days. No significant murmurs appreciated. Lungs relatively clear. Abdomen soft and nontender, though the liver does extend 2-3 cm below the right costal margin and is slightly tender with palpation. No ascites is noted. No Foster catheter is present. The site of his cath yesterday looks benign. The knees are without effusions or inflammation bilaterally. The left knee is a bit larger in size overall and suggests maybe some chronic arthritis, however. The left lower extremity is notable for some impressive cellulitis, which is most intense around the left forefoot; but which spreads about detention up the calf. This erythema is of the non purulent variety as there is no central area of necrosis, purulence, or drainage. The patient does have fairly good peripheral pulses and good capillary refill time. His feet have decreased sensation, but he is able to feel when his feet are touched or examined. LABORATORY DATA: Labs include white count on admission of 10,600. It is exactly the same now four days later. His hematocrit 29.4, platelet count is 161. Creatinine 1.03. BNP 2321. Procalcitonin has been less than 0.5 on three occasions; it is probably not fruitful to check anymore. When he first came in, his lactate was 2.8; but it rapidly normalized, and it is 0.9 this morning. LFTs normal. Hemoglobin A1c 7.9. Urinalysis without white cells. Blood cultures negative. Respiratory viral panel was done and was negative, and a MRSA screen is pending. IMAGING: Extensive imaging has been done. An MRI of his foot and ankle showed severe dorsal midfoot and forefoot soft-tissue swelling without abscess or osteo. Chest x-ray reveals some pulmonary interstitial prominence consistent with fluid overload or CHF. IMPRESSION: This gentleman was admitted with acute coronary syndrome which likely causes nausea and vomiting. It is also notable that for weeks or months, he has been undergoing therapy with oral antibiotics for chronic left lower extremity cellulitis. This appears to be a non purulent streptococcal-type cellulitis as one would expect from group A, C, F or G streptococcal cellulitis. Why it has not responded to oral antibiotics is unclear to me and a bit puzzling. At this point, I think our best option in terms of infection is to direct aggressive therapy at the beta-hemolytic streptococcals while he convalesces from his coronary syndrome. I do not think this is likely to be gram-negative; though of course, given the fact he is a diabetic, it is possible. RECOMMENDATIONS: 1. ASO titer will be checked. 2. I am going to discontinue the confusing array of antibiotics he is on now, which includes vanc, ceftriaxone, metronidazole, and fluconazole and consolidate with ceftaroline. I had considered using vanc, but I am a little concerned about his renal function. Likewise, I considered using dapto, but there is an interaction with the statins, which he now urgently needs after his coronary syndrome procedure. Linezolid was considered also, but there is interaction with his SSRIs, so will go with ceftaroline, which will give us good gram-positive coverage as well as some limited gram-negative therapy. 3. Will continue to closely follow this patient with you. Thank you very much for this consult.
[2016-10-29] VITALS (10 sets, daily range): BP systolic 142–171; BP diastolic 72–94; PULSE 68–83; RESP 20–25; O2SAT 92–100
[2016-10-29 05:14] LABS: BASOPHILS % (AUTO) 0.1 % (0-3); EOSINOPHILS % (AUTO) 0.2 % (0-5); MONOCYTES % (AUTO) 7.4 % (4-12); Mean Corpuscular Hemoglobin 30.9 pg (27.0-35.0); Mean Corpuscular Volume 88.7 fL (81-100); NEUTROPHILS % (AUTO) 81.2 % (40-74); Platelet Count 198 bil/L (150-400)
[2016-10-29 05:20] LABS: INR 1.18 ratio
--- NOTE | 2016-10-29 06:28 | NUR ---
Pain At approx. 2200, pt reports 4/10 pain to RUQ abdomen and acute dyspnea. SpO2 92% on 1L NC, pt increased to 3L with SpO2 increase to 95%. Pt reports "It kind of feels like I ate too much." BP 160s/90s, STAT EKG obtained, paged. Nitro SL administered x1 without relief, morphine 1mg IVP administered with relief upon reassessment. Pt states "I feel like this is all just too much for me, I'm not gonna make it. I'm going to ." Therapeutic listening implemented with decrease in anxiety, pt able to rest. No further c/o pain this shift. VSS. Tele SR 80s.
[2016-10-29] MEDS: Insulin Human REGular 300 Unit/3 mL Inj SUBQ SCH ×4 (07:30→20:32)
[2016-10-29] MEDS: Insulin GLARgine 100 Unit/mL Syringe SUBQ SCH ×2 (08:30→20:32)
[2016-10-29] MEDS: Pantoprazole 40 mg ER24 Tablet PO SCH (08:39)
[2016-10-29] MEDS: PARoxetine 20 mg Tablet PO SCH (08:40)
[2016-10-29] MEDS: Ceftaroline Inj 600 MG in Dextrose 5% 250 ML IV SCH ×2 (08:41→20:31)
--- NOTE | 2016-10-29 12:19 | PROG NOTE ---
[address] [address] PROGRESS NOTE PATIENT: REINIER PÉREZ : 1940 MR#: [id number] ADMIT: 10/25/2016 JOB ID: [id number] DATE: 10/29/2016 INFECTIOUS DISEASE FOLLOWUP NOTE: REASON FOR FOLLOWUP: Chronic left lower extremity cellulitis in a patient who was admitted actually for myocardial infarction. INTERVAL HISTORY: Overnight, the patient reports he has been feeling reasonably well. No ongoing chest pain or shortness of breath. No GI symptoms. He thinks his left lower extremity erythema and tenderness are a bit better. PHYSICAL EXAMINATION: Reveals an afebrile gentleman, in no acute distress. Recall that he has been febrile to as high as 39.4 since admission, currently 36.7. Pulse 71, respiratory rate 20, blood pressure 168/91, saturating well on 3 L. He is in no acute distress. Oral cavity negative. Lungs fairly clear. Cardiac tones without change. Abdomen benign. Left lower extremity erythema and tenderness seem to be diminished somewhat overnight in that the left lower extremity area is not warm nor is it tender really to the touch at all. There has been no progression of the erythema. LABORATORIES: Include a white count 9500, 81% segs. Creatinine 0.8. LFT normal. Procalcitonin 0.44. Streptozyme came back at 61. MRSA screen is now final and is negative. Respiratory viral panel and blood cultures also negative. IMAGING: No new imaging is available, though the ultrasound of the left lower extremity was negative for DVT. IMPRESSION: This gentleman was admitted with acute myocardial ischemia with associated nausea and vomiting. It was also noted that he had a left lower extremity cellulitis, which apparently is longstanding and has not improved with oral antibiotics he received from his primary care doctor on [facility]. He notes that during one of his courses of oral antibiotics, there seemed to be improvement but it came back rapidly after they stopped. RECOMMENDATIONS: 1. I would continue with the ceftaroline we are currently using. Yesterday's note contains the rationale for picking this new and more expensive antibiotic in favor of its older competitors, which is primarily because of possible toxicities or interactions with the older drugs. 2. Will continue to follow this patient with you. 3. It is likely the patient will be going home in the near future and will either pick an oral drug that he can take for a while for the cellulitis or perhaps give a single dose of dalbavancin prior to discharge.
[2016-10-29] MEDS ORDERED: Potassium Chloride 20 mEq SR Tablet PO ONE (17:00)
--- NOTE | 2016-10-29 17:00 | NUR ---
Encouraging [place] Throughout the day he has asked staff to do small tasks for him that he is fully capable of doing saying, "I just feel weak." For example, he asked this nurse to order his breakfast for him even though he was conversing with the nurse and eating applesauce independently. Encouraged him to order his own breakfast. He ordered it and then lunch and dinner later on. Staff continue to encourage independence in self care and rehabilitation. Care continues.
--- NOTE | 2016-10-29 17:34 | PCM.CHPPOD ---
Subjective Date of service Oct 29, 2016 History of Present Illness 75 year old male evaluated at bedside in [facility]. Patient admitted with cardiac concerns and secondary complaint of cellulitis of the left lower extremity. Pt does not routinely follow up with a [facility] as an outpatient however he states that he was evaluated once by someone in [place]. no complaints of pain left foot. Allergy Allergies: Coded Allergies: No Known Allergies (Unverified , 10/25/16) Medications Insulin Glargine (Lantus U100 Solostar Insulin Pen) 100 Unit/1 Ml Insuln.pen 30 UNIT SUBQ QAM Insulin Glargine (Lantus U100 Solostar Insulin Pen) 100 Unit/1 Ml Insuln.pen 20 UNIT SUBQ QPM Meloxicam (Meloxicam) 15 Mg Tablet 15 MG PO QAM Metformin (Metformin) 500 Mg Tablet 1,000 MG PO BID Paroxetine (Paxil) 20 Mg Tablet 20 MG PO HS Past Medical History Surgeries: Yes (L knee foreign body removed, bilat cataracts, tonsillectomy) Medical History: Surgical History: Social History Hx Alcohol Use: No Hx Substance Use: No Hx Tobacco Use: No Smoking Status: Never Smoker Podiatry Consult Exam Vital Signs Vital Sign - Last Date Time Temp Pulse Resp B/P Pulse Ox O2 Delivery O2 Flow Rate FiO2 10/29/16 11:30 36.6 73 20 160/85 98 Nasal Cannula 3.00 Intake and Output 10/28/16 10/28/16 10/29/16 Cumulative From/Thru 15:00 23:00 07:00 10/25/16 15:02 - 10/29/16 06:06 Intake Total 918 ml 563 ml 8873 ml Output Total 800 ml 400 ml 4375 ml Balance 118 ml 163 ml 4498 ml Intake Oral 390 ml 75 ml 2095 ml IV Total 528 ml 488 ml 6778 ml Output Urine Total 500 ml 400 ml 4075 ml Stool Total 300 ml 300 ml # Voids 2 3 10 # Bowel Movements 1 3 Result Diagram: 10/29/16 0420 10/29/16 0420 Lab Test 10/25/16 15:50 10/25/16 22:30 10/26/16 02:25 10/26/16 13:55 Hemoglobin A1c 7.9% (4.8-5.6) Urine Color Yellow (YELLOW) Urine Appearance Clear (CLEAR,HAZY) Urine pH 6.0 (5.0-8.0) Urine Specific Burt 1.025 (1.003-1.035) Urine Protein 100mg/dL (NEG,TRACE) Urine Glucose (UA) Negativemg/dL (NEGATIVE) Urine Ketones Tracemg/dL (NEGATIVE) Urine Occult Blood Small (NEGATIVE) Urine Nitrite Negative (NEGATIVE) Urine Bilirubin Negative (NEGATIVE) Urine Urobilinogen Normalmg/dL (NORMAL) Urine Leukocyte Esterase Negative (NEGATIVE) Urine RBC 0-2/hpf (0-2) Urine WBC 0-5/hpf (0-5) Urine Epithelial Cells Occasional/hpf (NONE-MOD) Urine Crystals Uric acid crystals (NONE Urine Bacteria None/hpf (NONE-FEW) Urine Hyaline Casts None/lpf (NONE) Urine Granular Casts None seen (NONE SEEN) Urine Waxy Casts None seen (NONE SEEN) Urine Red Blood Cell Casts None seen (NONE SEEN) Urine White Blood Cell Casts None seen (NONE SEEN) Urine Mucus None seen (None Seen) Urine Trichomonas None seen (NONE SEEN) Urine Yeast None (NONE SEEN) Urine Culture Reflexed Not indicated Triglycerides Level 233mg/dL (0-149) Cholesterol Level 197mg/dL (100-199) LDL Cholesterol, Calculated 95.400mg/dL (0-99) VLDL Cholesterol 46.600mg/dL HDL Cholesterol 55mg/dL (>39) Cholesterol/HDL Ratio 3.58 (0.0-4.4) Activated Partial Thromboplast Time 50.3sec (22.8-33.0) Troponin T 0.202ug/L (0.0-0.011) Test 10/26/16 20:55 10/27/16 02:30 10/27/16 12:15 10/28/16 02:05 Hold Blue Top Tube Received (Received) Lactic Acid Level 0.9mmol/L (0.4-2.0) Phosphorus Level 3.9mg/dL (2.5-4.9) Magnesium Level 2.2mg/dL (1.6-2.6) Vancomycin Level Trough 15.3mcg/mL D-Dimer 0.8mg/L (<0.50) Pro-B-Type Natriuretic Peptide 2321pg/mL (0-376) Procalcitonin 0.44ng/mL (See Comment) Thyroid Stimulating Hormone (TSH) 2.250uIU/mL (0.450-4.500) Free Thyroxine 1.06ng/dL (0.82-1.77) Streptozyme 61.4IU/mL (0.0-200.0) Test 10/29/16 04:20 White Blood Count 9.5th/mm3 (3.8-10.1) Red Blood Count 3.46mil/mm3 (4.40-5.80) Hemoglobin 10.7g/dL (13.8-17.2) Hematocrit 30.7% (41.0-50.0) Mean Corpuscular Volume 88.7fL (81-100) Mean Corpuscular Hemoglobin 30.9pg (27.0-35.0) Mean Corpuscular Hemoglobin Concent 34.9% (32.0-37.0) Red Cell Distribution Width 13.2% (12.3-15.4) Platelet Count 198bil/L (150-400) Neutrophils (%) (Auto) 81.2% (40-74) Lymphocytes (%) (Auto) 10.5% (14-46) Monocytes (%) (Auto) 7.4% (4-12) Eosinophils (%) (Auto) 0.2% (0-5) Basophils (%) (Auto) 0.1% (0-3) Prothrombin Time 12.7sec (8.1-12.5) Prothromb Time International Ratio 1.18ratio Sodium Level 138mEq/L (134-144) Potassium Level 3.4mEq/L (3.5-5.2) Chloride Level 98mEq/L (97-108) Carbon Dioxide Level 27mmol/L (18-29) Blood Urea Nitrogen 21mg/dL (8-27) Creatinine 0.80mg/dL (0.76-1.27) Estimat Glomerular Filtration Rate 101mL/min (>59) Glucose Level 102mg/dL (60-99) Calcium Level 7.7mg/dL (8.5-10.1) Total Bilirubin 0.7mg/dL (0.0-1.2) Aspartate Amino Transf (AST/SGOT) 19U/L (0-50) Alanine Aminotransferase (ALT/SGPT) 13U/L (0-44) Alkaline Phosphatase 70U/L (25-160) Total Protein 6.2g/dL (6.4-8.4) Albumin 3.1g/dL (3.4-5.0) Exam General: Alert, Oriented X3, Cooperative Neuro: Normal Speech, Strength at 5/5 x4 ext, Other (decreased epicritic sensation) Lower Extremities: Left: Edema localized Bilateral: Extremity warm Lower Extremity Pulses: Palpable: Left Dorsalis Pedis Left Posterior Tibal Right Dorsalis Pedis Right Posterior Tibal Podiatry WOUND : Wound Location/Description no open ulceration bilateral lower extremity. plantar lesion of left 1st MTPJ with absence of skin lines consistent with verruca. Mild dorsal left foot edema. no fluctuance noted. diffuse erythema of minimal intensity to the dorsum of the left foot. clearly significantly decreased from previous mid calf line of demarcation outlined in marker. Assessment & Plan Assessment stable resolving cellulitis of the left lower extremity. Problems: Plan detailed examination today. no open lesion noted. erythema appears to be improving and is limited to the dorsum of the left foot. No noted fluctuance or other clinical signs of abscess formation. No immediate surgical need. Differential diagnosis of Charcot foot, however MRI does not appear consistent with acute Charcot, will follow up as outpatient. Patient will require routine Diabetic care and evaluation as outpatient and is stable to transition to outpatient care from podiatry standpoint. Suggest follow up with podiatry within 1 [address] of [address] Follow Dr. Jama lu for antibiotic therapy. no further inpatient podiatry care required. Podiatry service will sign off care today. Please re-consult with any further questions or concerns. VTE Prophylaxis: Sub-Q Enoxaparin Unruly Esqueda DPM Oct 29, 2016 17:34
--- NOTE | 2016-10-29 21:47 | PCM.PNMED ---
Subjective Date of Service Oct 29, 2016 Subjective Pierre Quesada is a 75-year-old male with a past medical history significant for diabetes mellitus type II, insulin using who was flown in from [place] to [facility] via EMS for generalized weakness and nausea and vomiting. The patient reports he ate a chicken enchilada early yesterday afternoon and subsequently started to feel ill. He vomited five times. He reports his nausea and vomiting resolved at 21:00 last night. He had accompanying diaphoresis, dizziness, and chills. He denies headache, chest pain , upper extremity pain, numbness, or tingling, jaw pain, shortness of breath, abdominal pain, dysuria, diarrhea, or constipation. He has also recently had cellulitis of his left foot treated with unknown antibiotic. He comes to the ER this evening for generalized weakness and just not feeling "too hot." He was found to have an elevated troponin of 0.160. His EKG was equivocal. Overnight Events: No acute overnight events. This AM had some SOB, sats in the low 90's. With repositioning SOB improved. Denies cough, chest pain, no other new problems. Erythema from cellulitis on left lower leg has decreased. Currentley on full dose lovenox awaiting a therapeutic INR. . Exam Vital Signs Vital Sign - Last Date Time Temp Pulse Resp B/P Pulse Ox O2 Delivery O2 Flow Rate FiO2 10/29/16 03:33 36.6 75 22 171/86 97 Nasal Cannula 3.00 Intake and Output 10/28/16 10/28/16 10/29/16 Cumulative From/Thru 15:00 23:00 07:00 10/25/16 15:02 - 10/29/16 06:06 Intake Total 918 ml 563 ml 8873 ml Output Total 800 ml 400 ml 4375 ml Balance 118 ml 163 ml 4498 ml Intake Oral 390 ml 75 ml 2095 ml IV Total 528 ml 488 ml 6778 ml Output Urine Total 500 ml 400 ml 4075 ml Stool Total 300 ml 300 ml # Voids 2 3 10 # Bowel Movements 1 3 Exam General; Comfortable, NIAD HEENT; IMAN, mouth clear and well hydrated Neck; no overt JVD, large however Cardiac, soft systolic mummer, Lungs; few bibasilar crackles, no wheezing, good air movement Abdo; soft benign Extremities; no edema of significance, redness of left leg is resolving from the ink margins superiorly, however the foot/ankle area remains red and hot, non -purulent. Neuro; CN 2-12 intact, no gross motoer or sensory defects noted IVs and Medications Medications Reviewed: Medications were reviewed in detail Lab and Diagnostics Result Diagram: 10/29/1641910/29/16419 Microbiology Blood cultures x 2 pending. . X-Rays, CTs and MRIs X-RAY CHEST ONE VIEW, PORTABLE IMPRESSION: No acute cardiopulmonary disease process. Dictated by: Bertha Young MD, PhD on 10/25/2016 at 18:05 . MRI ANKLE LEFT WITH AND WITHOUT CONTRAST IMPRESSION: Dorsal midfoot/hindfoot and circumferential ankle subcutaneous cellulitis. No definite abscess identified. No marrow signal changes or abnormal enhancement to suggest osteomyelitis. Mild peroneal tenosynovitis. Dictated by: Monty Cerrato M.D. on 10/27/2016 at 17:36 12-lead ECG EKG: Sinus rhythm, heart rate 85, left axis, normal intervals, normal R-wave progression, no pathological Q waves or acute ischemic changes of his ST elevation or depression. Cardiac Echo Impressions Interpretation Summary 1) Mild-moderate concentric left ventricular hypertrophy with normal size and hyperdynaimc left ventricular systolic functoin (EF 70-75%). 2) No obvoius wall motion abnormalities present. 3) Normal right ventricular size and function. 4) Mild to moderate aortic stenosis (valve area 1.3cm2, mean gradient 18mmHg). 5) Elevated right sided filling pressures based on IVC assessment. 6) No prior Echo available for comparison. Additional Diagnostics Podiatry examination. No open lesion noted. erythema appears to be improving and is limited to the dorsum of the left foot. No noted fluctuance or other clinical signs of abscess formation. No immediate surgical need. Differential diagnosis of Charcot foot, however MRI does not appear consistent with acute Charcot, will follow up as outpatient. Patient will require routine Diabetic care and evaluation as outpatient and is stable to transition to outpatient care from podiatry standpoint. Suggest follow up with podiatry within [address] of [address]. Follow Dr. Jama lu for antibiotic therapy. No further inpatient podiatry care required. Podiatry service will sign off care today. Please re-consult with any further questions or concerns. CATH. FINDINGS: CONCLUSIONS: 1. PCI -- Resolute JOI of proximal LCX culprit lesion -- 3.5 x 18 mm deployed at high pressure. 2. ACS -- NSTEMI. 3. CAD (coronary artery disease) -- two-vessel coronary disease including proximal left circumflex lesion revascularized; and mid diagonal lesions; and distal/apical LAD lesion. RECOMMENDATIONS: 1. ECASA -- indefinitely. 2. Plavix -- one year of Plavix if well tolerated including ongoing Cardiology followup. I discussed with the patient and his the critical importance of mandatory Plavix, and not to stop for any reason without immediate Cardiology consultation. 3. Optimal medical therapy -- guideline directed medical therapy including beta mukesh, including additionally beta mukesh, NING and statin. 4. Reassess atrial fibrillation -- if he has ongoing atrial fibrillation and if he is felt to require ongoing anticoagulation, this can be considered in the context of his dual antiplatelet therapy. 5. Regarding his additional coronary lesions, they can be followed clinically but appear not likely to require intervention unless symptomatic which also appears not likely. Assessment & Plan Pierre Quesada is a 75-year-old male with a past medical history significant for diabetes mellitus type II, insulin using who was flown in from [place] to [facility] via EMS for generalized weakness and nausea and vomiting. 1. Acute NSTEMI, present on admission. Active. - Patient was taken to the solder making laborer by Dr. Ascencio and the culprit lesion for causing the acute coronary syndrome was found in the left circumflex and a stent was deployed in this area with success. - Dual Anti-platelet therapy: ASA for 6 month then Plavix only as outpatient. - Continue Lipitor. - Cardiology following, time and recommendations appreciated. 2. Nonpurulent cellulitis left foot, present on admission. Improving. - The patient has been treated for cellulitis as an outpatient with unknown antibiotic. - Repeat CBC daily. - Procalcitonin 0.44 - MRI per above. Possible mild peroneal tenosynovitis. - ID consulted, time and recommendations appreciated. - Ceftaroline IV and possibly dalbavancin prior to discharge. - Podiatry consulted for possible charcot foot. Time and recommendations appreciated. - Physical therapy consulted. 3. Sepsis, present on admission. Resolved - SIRS criteria met: Febrile 38.1, tachypnea respiratory rate 26, lactic acid 2.8, probable source left foot nonpurulent cellulitis and possible food poisoning. - Early goal directed therapy was met including IV antibiotics and fluid resuscitation. - Patient presented with generalized weakness. 4. Possible food poisoning, present on admission. Resolved. - Patient reports he began having nausea and vomiting after he ate lunch at a restaurant which subsided yesterday night at 21:00. - Supportive management including IV fluids. - Viral respiratory PCR as there have been several outbreaks of Norovirus which fit his presentation. 5. Hypomagnesemia, present on admission. Resolved. - Ordered 2 g magnesium for electrolyte repletion. Continue to monitor daily. 6. New onset atrial fibrillation - Full dose bridging Lovenox, - Coumadin started, check PT daily - Amiodarone currently at 400 with plan to decrease to 200 mg daily per Cards. Chronic problems: Diabetes mellitus type II, insulin using, chronic. - The patient reports that he is not always compliant with his diabetic medication/insulin. - Patient reports his last hemoglobin A1c was 7.1%. Ordered hemoglobin A1c = 7.9. - Continue home Lantus 30 units in the morning and 20 units at night when eating , continue correction insulin - Consulted podiatry for diabetic foot recommendations. Hyperlipidemia, chronic. - Not medically managed as an outpatient -Patient started on Lipitor 80 mg by mouth daily -Consider addition of coenzyme Q Depression, chronic. - Continue Paroxetine 20 mg daily. PRN antiemetics: Zofran and Maalox. PRN bowel regimen: Senna and MiraLAX. PRN analgesics: Tylenol. High risk medications: IV Morphine, PO Coumadin Disposition: Likely here for 1-2 more days. . Pain Evaluation: Adequate Pain Control GI Prophylaxis: Proton Pump Inhibitor VTE Prophylaxis: Sub-Q Enoxaparin Resuscitation Status: CPR: Attempt Resuscitation Attending Statement The patient was seen and examined together with Dr. Oliveira on 10-29-16 and I agree with the history, exam and plan as outlined in the note above. BERTIN OLIVEIRA DO Oct 29, 2016 06:08 Ron Neal MD Oct 30, 2016 16:02
[2016-10-29] MEDS ORDERED: LORazepam 1 mg Tablet PO ONE (23:55)
[2016-10-30] VITALS (8 sets, daily range): BP systolic 151–189; BP diastolic 78–98; PULSE 50–70; RESP 12–24; O2SAT 95–97
[2016-10-30] MEDS ORDERED: Furosemide 10 mg/mL 2 mL Inj IV ONE (02:45)
[2016-10-30] MEDS ORDERED: Labetalol 5 mg/mL 4 mL Inj IVPUSH ONE (03:30)
--- NOTE | 2016-10-30 04:48 | NUR ---
Dyspnea / Anxiety / Hypertension At beginning of shift, pt states "I feel short of breath, like there's a tight band across my abdomen and I can't draw in a full breath." Upon assessment, SpO2 88% on RA and significantly labored breathing, 3L NC applied with increase in O2 to 97%. Pt reports no relief to dyspnea. paged, one time dose of ativan administered to no effect. Pt reports "I feel so anxious about all of this. And I can't breathe." Orders placed for STAT CXR, 20mg IVP Lasix administered after. Pt educated to medication regimen, encouraged to relax and deep breathe. Pt unable to rest throughout shift, order for 3mg melatonin placed and administered with pt resting upon reassessment. Pt had transient HTN of 189/98; paged, one time order for 10mg IVP labetalol placed. Repeat BP taken just prior to administration, spontaneous decrease in BP to 157/87; medication withheld. VSS, pt on 2L NC with SpO2 of 95%. Pt denies pain.
[2016-10-30 04:52] LABS: BASOPHILS % (AUTO) 0.2 % (0-3); EOSINOPHILS % (AUTO) 0.6 % (0-5); MONOCYTES % (AUTO) 6.2 % (4-12); Mean Corpuscular Hemoglobin 30.5 pg (27.0-35.0); Mean Corpuscular Volume 88.8 fL (81-100); NEUTROPHILS % (AUTO) 81.3 % (40-74); Platelet Count 243 bil/L (150-400)
[2016-10-30 05:07] LABS: INR 1.25 ratio
[2016-10-30] MEDS: Insulin Human REGular 300 Unit/3 mL Inj SUBQ SCH ×4 (07:30→20:21)
--- NOTE | 2016-10-30 08:04 | DRSVH ---
PROCEDURE: X-RAY CHEST ONE VIEW, PORTABLE ([id number]) INDICATIONS: 75-year-old male with respiratory distress. TECHNIQUE: One view of the chest was acquired. COMPARISON: [facility], CR, XR CHEST 1VW (PORTABLE), 10/27/2016, 22:08. [facility], CR, XR CHEST 1VW (PORTABLE), 10/27/2016, 12:26. [facility], CR, XR CHEST 1VW (POR TABLE), 10/25/2016, 15:21. FINDINGS: Surgical changes and devices: None. Lungs and pleura: No pleural effusions or pneumothorax. Bilateral lower lung interstitial and airspa ce opacities have increased. Mediastinum: Mediastinal contours appear normal. Heart size is normal. Bones and chest wall: No suspicious bony lesions. Overlying soft tissues appear unremarkable. IMPRESSION: Continued further interval increase in bilateral dependent pulmonary edema and/or broncho pneumonia. Dictated by: Ethan Esposito M.D. on 10/30/2016 at 8:02 Approved by: Ethan Esposito M.D. on 10/30/2016 at 8:02
[2016-10-30] MEDS: Pantoprazole 40 mg ER24 Tablet PO SCH (08:10)
[2016-10-30] MEDS: Ceftaroline Inj 600 MG in Dextrose 5% 250 ML IV SCH ×2 (08:10→20:09)
[2016-10-30] MEDS: Insulin GLARgine 100 Unit/mL Syringe SUBQ SCH ×2 (08:10→20:21)
[2016-10-30] MEDS: PARoxetine 20 mg Tablet PO SCH (08:10)
--- NOTE | 2016-10-30 10:15 | PROG NOTE ---
[address] [address] PROGRESS NOTE PATIENT: REINIER PÉREZ : 1940 MR#: [id number] ADMIT: 10/25/2016 JOB ID: [id number] DATE: 10/30/2016 INFECTIOUS DISEASE FOLLOW UP NOTE: REASON FOR FOLLOW UP: Chronic cellulitis with recent myocardial infarction. INTERVAL HISTORY: Overnight, the patient has been free of fevers, chills or sweats. He does report continued shortness of breath which is episodic and occurs during the night. This seems to consist of both increasing shortness of breath as well as a bandlike sensation around his upper abdomen but without chest pain per se. He has no significant other GI symptoms. He notes that his leg is improving quite rapidly. PHYSICAL EXAMINATION: Reveals an afebrile gentleman, temperature 36.5, blood pressure 166/81, saturating well on 2 L. Examination of the mental status reveals it to be clear. The patient's lungs are notable for rales at both bases. Abdomen without change. His lower extremity cellulitis is significantly improved. LABORATORIES: Include white count 10,500, still with 80% segs. Creatinine 0.77. BNP is pending as I just ordered it. One done two days ago was 2300. Procalcitonin was 0.4 a couple days ago and I do not see a need to repeat this study. A MRSA screen negative. Respiratory viral panel negative and blood cultures are negative. IMAGING: Includes a chest x-ray that was done during the middle of night because of shortness of breath. It shows an interval increase in bilateral pulmonary edema. IMPRESSION: This patient is recovering for myocardial infarction, but it is concerning that he notes an increasing shortness of breath during the night and a chest x-ray done during the middle the night also shows increasing infiltrate. He has some rales at his bases and I have ordered a BMP out of concern that he may have worsening heart failure following his myocardial infarction. With respect to his cellulitis, it seems to be improving. We still have no specific microbiologic etiology though I suspect it represents a Staph or a strep. The ASO titer was negative which argues against but does not disprove the possibility of a group A strep infection. RECOMMENDATIONS: 1. Will continue with ceftaroline for Staph and strep coverage. 2. Will continue to closely follow this patient with you. 3. We await the BNP. If this is elevated, it may mean the patient needs another echo and additional cardiology evaluation.
[2016-10-30] MEDS ORDERED: Furosemide 10 mg/mL 4 mL Inj IVPUSH ONE (10:55)
--- NOTE | 2016-10-30 11:31 | NUR ---
Incontinence He has been asking staff to take care of him in areas where he is fully capable of taking care of himself. For example, boat puller stated he asked them to push the buttons on his bed to raise and lower the head of the bed for him. He was observed by staff, through the window, to be doing it on his own when they were out of the room. Staff have been encouraging and pushing him to be as independent as possible. He has had two episodes of incontinence today. After the first one, this nurse asked if he could feel when he needed to urinate. He said yes he could. Staff were kind, but straight forward in explaining he needs to call when he needs to go to the bathroom and that other than an occasional accident he should not be wetting his briefs. He agreed to this, but then just recently had another incontinence episode. Dr. Neal and the resident team notified of his incontinence. Care continues. Addendum: 10/30/16 at 1543 by MOLLY VERMA RN Throughout the day he has continued to have incontinence issues despite staff's attempts at getting him to be more independent and call when he needs to urinate. Dr. Renee made aware. Care continues.
[2016-10-30] MEDS ORDERED: Furosemide 10 mg/mL 2 mL Inj IVPUSH ONE (13:55)
--- NOTE | 2016-10-30 17:58 | NUR ---
Social Work Note: Continued Discharge Planning Data& Assessment: Per PT, pt is cleared to go home with Home Health Services. SW to follow up with pt regarding Home Health Preferences. SW to continue to follow. Plan: Anticipated discharge home via POV with Home health PT when medically ready. SW to follow up with pt regarding preferences. SW to continue to follow. TAE Vides
--- NOTE | 2016-10-30 18:22 | PCM.PNMED ---
Subjective Date of Service Oct 30, 2016 Subjective Pierre Quesada is a 75-year-old male with a past medical history significant for diabetes mellitus type II, insulin using who was flown in from [place] to [facility] via EMS for generalized weakness and nausea and vomiting. The patient reports he ate a chicken enchilada early yesterday afternoon and subsequently started to feel ill. He vomited five times. He reports his nausea and vomiting resolved at 21:00 last night. He had accompanying diaphoresis, dizziness, and chills. He denies headache, chest pain , upper extremity pain, numbness, or tingling, jaw pain, shortness of breath, abdominal pain, dysuria, diarrhea, or constipation. He has also recently had cellulitis of his left foot treated with unknown antibiotic. He comes to the ER this evening for generalized weakness and just not feeling "too hot." He was found to have an elevated troponin of 0.160. His EKG was equivocal. Overnight Events: Mr. Quesada remains anxious and short of breath. A Chest plain film showed increased pulmonary vascular markings, IV lasix at 20 mg was given subsequently. This morning he was resting in bed comfortably and in no acute distress. The patient reports that he feels better than the day prior. The patient denies headache, dizziness, sore throat, cough, chest pain, abdominal pain, nausea, vomiting, constipation, and diarrhea. He patient is voiding and eliminating without difficulty. He is ambulating without difficulty. Erythema from cellulitis on left lower leg has decreased from day before. Currently on full dose lovenox awaiting a therapeutic INR. Reports some anxiety about being able to manage his new health issues and medications at home. . Exam Vital Signs Vital Sign - Last Date Time Temp Pulse Resp B/P Pulse Ox O2 Delivery O2 Flow Rate FiO2 10/30/16 12:55 36.6 69 22 155/80 96 Nasal Cannula 2.00 Intake and Output 10/29/16 10/29/16 10/30/16 Cumulative From/Thru 15:00 23:00 07:00 10/25/16 15:02 - 10/30/16 05:45 Intake Total 359 ml 887 ml 87806 ml Output Total 1 ml 4376 ml Balance 359 ml 886 ml 5743 ml Intake Oral 430 ml 2525 ml IV Total 359 ml 457 ml 7594 ml Output Urine Total 1 ml 4076 ml Stool Total 300 ml # Voids 10 # Bowel Movements 1 4 Exam General: No acute distress, well-developed, well-nourished, appropriately interactive HEENT: Normocephalic, atraumatic. External ears without defect. Pupils equal, round, and reactive to light and accommodation. Anicteric sclerae, moist conjunctivae, and no lid lag. Oropharynx free of erythema and cobble stoning with moist mucosa. Neck: Supple with full range of motion. No jugular venous distension. No bruits. No lymphadenopathy or thyromegaly. Cardiovascular: Regular rate and rhythm with no murmurs, rubs, or gallops appreciated Pulmonary: Clear to auscultation bilaterally with mild crackles, and no wheezes , or rhonchi. Normal respiratory effort with no use of accessory muscles. Abdomen: Bowel tones present. Soft, nontender, nondistended. No hepatosplenomegaly or masses appreciated. Extremities: No clubbing, cyanosis, edema, or lymphadenopathy appreciated. Distal lower extremity dryness, hair loss, and foot structure consistent with long standing unmanaged diabetes. Skin: Normal temperature, turgor, and texture; no rash, ulcers, or subcutaneous nodules appreciated. Neurological: Cranial nerves grossly intact. Normal muscle strength, tone, and bulk. Reflexes, coordination, and sensory function within normal limits. No known gait impairment. Psychiatric: Normal mood and affect. Alert and oriented to person, place, and time. IVs and Medications Medications Reviewed: Medications were reviewed in detail Lab and Diagnostics Result Diagram: 10/30/1642210/30/163 Microbiology Blood cultures x 2 pending. . X-Rays, CTs and MRIs X-RAY CHEST ONE VIEW, PORTABLE IMPRESSION: Continued further interval increase in bilateral dependent pulmonary edema and/or bronchopneumonia. Dictated by: Ethan Esposito M.D. on 10/30/2016 at 8:02 X-RAY CHEST ONE VIEW, PORTABLE IMPRESSION: No acute cardiopulmonary disease process. Dictated by: Bertha Young MD, PhD on 10/25/2016 at 18:05 . MRI ANKLE LEFT WITH AND WITHOUT CONTRAST IMPRESSION: Dorsal midfoot/hindfoot and circumferential ankle subcutaneous cellulitis. No definite abscess identified. No marrow signal changes or abnormal enhancement to suggest osteomyelitis. Mild peroneal tenosynovitis. Dictated by: Monty Cerrato M.D. on 10/27/2016 at 17:36 12-lead ECG EKG: Sinus rhythm, heart rate 85, left axis, normal intervals, normal R-wave progression, no pathological Q waves or acute ischemic changes of his ST elevation or depression. Cardiac Echo Impressions Interpretation Summary 1) Mild-moderate concentric left ventricular hypertrophy with normal size and hyperdynaimc left ventricular systolic functoin (EF 70-75%). 2) No obvoius wall motion abnormalities present. 3) Normal right ventricular size and function. 4) Mild to moderate aortic stenosis (valve area 1.3cm2, mean gradient 18mmHg). 5) Elevated right sided filling pressures based on IVC assessment. 6) No prior Echo available for comparison. Additional Diagnostics Podiatry examination. No open lesion noted. erythema appears to be improving and is limited to the dorsum of the left foot. No noted fluctuance or other clinical signs of abscess formation. No immediate surgical need. Differential diagnosis of Charcot foot, however MRI does not appear consistent with acute Charcot, will follow up as outpatient. Patient will require routine Diabetic care and evaluation as outpatient and is stable to transition to outpatient care from podiatry standpoint. Suggest follow up with podiatry within [address] week of discharge. Follow Dr. Jama lu for antibiotic therapy. No further inpatient podiatry care required. Podiatry service will sign off care today. Please re-consult with any further questions or concerns. CATH. FINDINGS: CONCLUSIONS: 1. PCI -- Resolute JOI of proximal LCX culprit lesion -- 3.5 x 18 mm deployed at high pressure. 2. ACS -- NSTEMI. 3. CAD (coronary artery disease) -- two-vessel coronary disease including proximal left circumflex lesion revascularized; and mid diagonal lesions; and distal/apical LAD lesion. RECOMMENDATIONS: 1. ECASA -- indefinitely. 2. Plavix -- one year of Plavix if well tolerated including ongoing Cardiology followup. I discussed with the patient and his the critical importance of mandatory Plavix, and not to stop for any reason without immediate Cardiology consultation. 3. Optimal medical therapy -- guideline directed medical therapy including beta mukesh, including additionally beta mukesh, NING and statin. 4. Reassess atrial fibrillation -- if he has ongoing atrial fibrillation and if he is felt to require ongoing anticoagulation, this can be considered in the context of his dual antiplatelet therapy. 5. Regarding his additional coronary lesions, they can be followed clinically but appear not likely to require intervention unless symptomatic which also appears not likely. Assessment & Plan Pierre Quesada is a 75-year-old male with a past medical history significant for diabetes mellitus type II, insulin using who was flown in from [place] to [facility] via EMS for generalized weakness and nausea and vomiting. 1. Acute NSTEMI, present on admission. Active. - Patient was taken to the solder making laborer by Dr. Ascencio and the culprit lesion for causing the acute coronary syndrome was found in the left circumflex and a stent was deployed in this area with success. - Dual Anti-platelet therapy: ASA for 6 month then Plavix only as outpatient. - Continue Lipitor. - Cardiology following, time and recommendations appreciated. 2. Nonpurulent cellulitis left foot, present on admission. Improving. - The patient has been treated for cellulitis as an outpatient with unknown antibiotic. - Repeat CBC daily. - Procalcitonin 0.44 - MRI per above. Possible mild peroneal tenosynovitis. - ID consulted, time and recommendations appreciated. - Ceftaroline IV and possibly dalbavancin prior to discharge. - Podiatry consulted for possible Charcot foot. Time and recommendations appreciated. - Physical therapy consulted. 3. Fluid overload, not present on admission. Active. - IV lasix 20 mg given several times today. - CXR per above. Repeat tomorrow. 4. Sepsis, present on admission. Resolved - SIRS criteria met: Febrile 38.1, tachypnea respiratory rate 26, lactic acid 2.8, probable source left foot nonpurulent cellulitis and possible food poisoning. - Early goal directed therapy was met including IV antibiotics and fluid resuscitation. - Patient presented with generalized weakness. 5. Possible food poisoning, present on admission. Resolved. - Patient reports he began having nausea and vomiting after he ate lunch at a restaurant which subsided yesterday night at 21:00. - Supportive management including IV fluids. - Viral respiratory PCR negative. 6. Hypomagnesemia, present on admission. Resolved. - Ordered 2 g magnesium for electrolyte repletion. Continue to monitor daily. 7. New onset atrial fibrillation - Full dose bridging Lovenox, - Coumadin started, PT (10/30/16) 1.25. - Amiodarone currently at 400 with plan to decrease to 200 mg daily per Cards. Chronic problems: Diabetes mellitus type II, insulin using, chronic. - The patient reports that he is not always compliant with his diabetic medication/insulin. - Patient reports his last hemoglobin A1c was 7.1%. Ordered hemoglobin A1c = 7.9. - Continue home Lantus 30 units in the morning and 20 units at night when eating , continue correction insulin - Consulted podiatry for diabetic foot recommendations. Hyperlipidemia, chronic. - Not medically managed as an outpatient -Patient started on Lipitor 80 mg by mouth daily -Consider addition of coenzyme Q Depression, chronic. - Continue Paroxetine 20 mg daily. PRN antiemetics: Zofran and Maalox. PRN bowel regimen: Senna and MiraLAX. PRN analgesics: Tylenol. High risk medications: IV Morphine, PO Coumadin Disposition: Likely here for 1-2 more days depending on Physical therapy progress and O2 requirements. . Pain Evaluation: Adequate Pain Control GI Prophylaxis: Proton Pump Inhibitor VTE Prophylaxis: Sub-Q Enoxaparin Resuscitation Status: CPR: Attempt Resuscitation Attending Statement The patient was seen and examined together with Dr. Oliveira on 10-30-16 and I agree with the history, exam and plan as outlined in the note above. BERTIN OLIVEIRA DO Oct 30, 2016 18:22 Ron Neal MD Oct 31, 2016 15:43
--- NOTE | 2016-10-30 23:20 | NUR ---
Hypertension. Patients blood pressure is elevated in the 180's. Blood pressure taken manually and same reading obtained. patient resting in bed with no complaints. Provider paged and orders for PRN antihypertensive place by the provider. Blood pressure was reassessed within an hour and found to be in the 160's. Patient resting in bed with eyes closed.
[2016-10-30] MEDS ORDERED: hydrALAZINE 20 mg/mL Inj IV ONE (23:30)
[2016-10-31] VITALS (7 sets, daily range): BP systolic 154–168; BP diastolic 72–82; PULSE 55–65; RESP 16–18; O2SAT 93–98
[2016-10-31 04:46] LABS: INR 1.66 ratio
[2016-10-31 06:03] LABS: BASOPHILS % (AUTO) 0.2 % (0-3); EOSINOPHILS % (AUTO) 1.6 % (0-5); MONOCYTES % (AUTO) 8.6 % (4-12); Mean Corpuscular Hemoglobin 30.6 pg (27.0-35.0); Mean Corpuscular Volume 88.5 fL (81-100); NEUTROPHILS % (AUTO) 72.4 % (40-74); Platelet Count 283 bil/L (150-400)
[2016-10-31] MEDS: Pantoprazole 40 mg ER24 Tablet PO SCH (07:50)
[2016-10-31] MEDS: Insulin Human REGular 300 Unit/3 mL Inj SUBQ SCH ×2 (07:53→12:37)
[2016-10-31] MEDS: PARoxetine 20 mg Tablet PO SCH (07:54)
[2016-10-31] MEDS: Insulin GLARgine 100 Unit/mL Syringe SUBQ SCH (07:55)
[2016-10-31] MEDS: Ceftaroline Inj 600 MG in Dextrose 5% 250 ML IV SCH (08:02)
--- NOTE | 2016-10-31 09:25 | NUR ---
Social Work: Initial Assessment D: Per EMR review, pt is 75 year old male admitted for diabetic foot infection, elevated troponin, Pt is [employer]; pt denies any LT insurance or VA benefits. PCP is Sandeep Reyes MD. NOK is Kitty Calixto, , . Advanced directives not on file- requested from pt who states his will provide copy. Readmit score is low, 2/8. WELL HEAD PUMPER met with pt at bedside. Sw role explained. See initial assessment. Pt lives on [address] [facility] with his . He uses a cane at baseline, continues to drive and is I. Pt states he has 16 stairs to enter his home and states that PT has not yet worked with him on navigating stairs. PT recommendation is for home with HH; WELL HEAD PUMPER reviewed with pt and provided HH choice list. Pt has no preference for HH companies. Due to geographic location referral will be sent to [facility]. [facility] to provide referral and determine response time as pt lives on [facility]. . Pt states he has never been to SNF. Pt discussed in am rounds. Pt is medically stable for discharge home today; F2F order obtained for . Pt agrees with this plan. WELL HEAD PUMPER requested PT work with pt on stairs prior to d/c. A: Pt who lives at home with . P: Pt to discharge home today via POV; [facility] to provide referral and clinicals to [facility]. TAE Longo Addendum: 10/31/16 at 1011 by KIM BROWN Amended: Links added.
--- NOTE | 2016-10-31 10:23 | NUR ---
Spoke with Amanda at [facility] gave her new referral for this patient and gave her access. Face to face and home health order can be faxed to [phone]. Updated RECORDER HELPER SEISMOGRAPH
[2016-10-31] MEDS ORDERED: Amoxicillin-Clav 875-125 mg Tablet PO SCH (13:30)
--- NOTE | 2016-10-31 14:08 | PROG NOTE ---
[address] [address] PROGRESS NOTE PATIENT: REINIER PÉREZ : 1940 MR#: [id number] ADMIT: 10/25/2016 JOB ID: [id number] DATE: 10/31/2016 INFECTIOUS DISEASE FOLLOW UP NOTE: REASON FOR FOLLOW UP: Severe left lower extremity cellulitis in the setting of acute myocardial infarction. INTERVAL HISTORY: The patient states his left leg is rapidly improving and no longer is red or painful in any way. He has no fevers, chills, or sweats. He notes he is still very tired which he attributes to recovery from his recent VA. There are plans for the patient to be discharged today. PHYSICAL EXAMINATION: Reveals a comfortable gentleman lying in bed. Temperature 36.7, pulse 58, respiratory rate 18, blood pressure 168/82, saturating 90% on room air. Examination of the lungs reveals them to be basically clear. Cardiac tones: Regular rate and rhythm. Abdomen: Negative. Left lower extremity cellulitis has almost completely resolved. LABORATORIES: Include white count 8700, normal differential. Creatinine 0.84. LFTs are normal. Urinalysis without pyuria. Micro cultures all negative including MRSA screen, blood cultures and respiratory viral panel. IMAGING: No new imaging is available, though a chest x-ray done yesterday showed bilateral pulmonary infiltrates may be consistent with CHF. IMPRESSION: Cellulitis has improved quite dramatically. We do not have an etiologic agent, but I suspect this was group A or group B strep by his appearance. We have treated him with ceftaroline so as to provide MRSA as well as strep coverage but the MRSA screen was negative, so I think it is fairly unlikely this was MRSA, both because of its appearance and the negative MRSA swab. We offered the patient dalbavancin as a single long-acting dose of antibiotic for staph and strep, but the patient declined and said he would prefer simple oral therapy. Given that he has already improved so much and had had four or five days of appropriate IV therapy, I think we can finish up with an oral agent as per the patient's preference. RECOMMENDATIONS: 1. The patient can be discharged today on Augmentin 875 p.o. b.i.d. for a week. 2. ID will go ahead and sign off on this patient. 3. We endeavored to answer his general questions about his cardiac as well as infectious status to the best of our ability.
[2016-10-31] MEDS ORDERED: CLOP75TA28 PO (15:19)
[2016-10-31] MEDS ORDERED: METO25TA6 PO (15:19)
[2016-10-31] MEDS ORDERED: ATOR40TA69 PO (15:19)
[2016-10-31] MEDS ORDERED: AGM875T PO (15:19)
[2016-10-31] MEDS ORDERED: ASPI81TA3 PO ×2 (15:19→15:34)
[2016-10-31] MEDS ORDERED: LISI-571 PO (15:19)
[2016-10-31] MEDS ORDERED: AMIO200T PO (15:26)
[2016-10-31] MEDS ORDERED: Warfarin per Pharmacist PO ×2 (15:26→16:27)
--- NOTE | 2016-10-31 15:47 | PCM.DIMED ---
BERTIN OLIVEIRA DO 10/31/16 1041: Discharge Instructions Date of Service Oct 31, 2016 Dates of Hospitalization Oct 25, 2016 at 18:04 Discharge Diagnosis Discharge Diagnosis 1. Acute NSTEMI, present on admission. Treated. 2. Nonpurulent cellulitis left foot, present on admission. Improving. 3. Sepsis, present on admission. Resolved 4. Possible food poisoning, present on admission. Resolved. 5. Hypomagnesemia, present on admission. Resolved. 6. New onset atrial fibrillation, controlled. Diabetes mellitus type II, insulin using, chronic. Hyperlipidemia, chronic. Depression, chronic. Medication Instructions New medications. Warfarin 5 mg Daily. Follow closely with Coumadin clinic regarding INR. Amiodarone 200 mg Daily. Follow closely with Cardiology clinic. Aspirin 81 mg Daily. Stop taking after 6 weeks (42 days, when the bottle runs out) Plavix 75 mg Daily. Lipitor 80 mg Daily. Augmentin 875 mg Daily for 7 days. Metoprolol 12.5 mg twice a day. Lisinopril 5 mg Daily. Continue other medications. Continue home insulin regimen. Continue home Metformin. Continue Meloxicam as needed. Continue Paroxetine as needed. Diet Heart Healthy Activity Home Health Phyical Therapy Call your provider Bleeding, Chest pain, Vomitting, Excessive diarrhea Patient Instructions Follow-up plan Follow up within 1 week with Cardiology clinic regarding Amiodarone dosing and Warfarin. Aspirin may be stopped after 6 weeks (42 days.). ---- Will need to follow up regarding TSH and T4. LFTs, PFTs, and Eye exam. Follow up with your PCP Dr. Reyes in 1-2 weeks regarding hospital stay and new medications outlined above. Follow up in 1-3 days with Coumadin clinic regarding INR and Coumadin dosing. Follow up in [address] Esqueda with podiatry regarding foot care and complications of diabetes. Follow-up Provider: Sandeep Reyes MD Follow-up with PCP in: 2 weeks Provider: Unruly Esqueda DPM Follow-up in: 1 week Ron Neal MD 11/11/16 0822: Discharge Instructions Attending's Statement The patient was seen and examined together with Dr. Oliveira on 10-31-16 and I agree with the history, exam and plan as outlined in the note above. BERTIN OLIVEIRA DO Oct 31, 2016 10:41 Ron Neal MD Nov 11, 2016 08:22
--- NOTE | 2016-10-31 16:45 | NUR ---
[place]charge [place] 6[place], went over all instructions and medications with patient and his spouse Rom. Pt and had no questions. Pt has f/u appnts made for his PCP and sound person.
--- NOTE | 2016-10-31 17:00 | PCM.DC.MED ---
Discharge Summary Date of Service Oct 31, 2016 Dates of Hospitalization Date of Hospital Admission Oct 25, 2016 at 18:04 Date of Discharge: Oct 31, 2016 Providers: Admitting Physician: Pierre Almanza MD Primary Care Physician: Sandeep Reyes MD Attending Physician: Pierre Almanza MD Diagnosis at Time of Discharge Diagnosis at Time of Discharge 1. Acute NSTEMI, present on admission. Treated. 2. Nonpurulent cellulitis left foot, present on admission. Improving. 3. Sepsis, present on admission. Resolved 4. Possible food poisoning, present on admission. Resolved. 5. Hypomagnesemia, present on admission. Resolved. 6. New onset atrial fibrillation, present on admission. Treated. Chronic Diabetes mellitus type II, insulin using, present on admission. Treated. Chronic Hyperlipidemia, Present on admission. Active. Depression, chronic. . Procedures XRay, CTs & MRIs X-RAY CHEST ONE VIEW, PORTABLE IMPRESSION: Continued further interval increase in bilateral dependent pulmonary edema and/or bronchopneumonia. Dictated by: Ethan Esposito M.D. on 10/30/2016 at 8:02 X-RAY CHEST ONE VIEW, PORTABLE IMPRESSION: No acute cardiopulmonary disease process. Dictated by: Bertha Young MD, PhD on 10/25/2016 at 18:05 . MRI ANKLE LEFT WITH AND WITHOUT CONTRAST IMPRESSION: Dorsal midfoot/hindfoot and circumferential ankle subcutaneous cellulitis. No definite abscess identified. No marrow signal changes or abnormal enhancement to suggest osteomyelitis. Mild peroneal tenosynovitis. Dictated by: Monty Cerrato M.D. on 10/27/2016 at 17:36 ECG 12 Lead EKG: Sinus rhythm, heart rate 85, left axis, normal intervals, normal R-wave progression, no pathological Q waves or acute ischemic changes of his ST elevation or depression. Cardiac Echo Impression Interpretation Summary 1) Mild-moderate concentric left ventricular hypertrophy with normal size and hyperdynaimc left ventricular systolic functoin (EF 70-75%). 2) No obvoius wall motion abnormalities present. 3) Normal right ventricular size and function. 4) Mild to moderate aortic stenosis (valve area 1.3cm2, mean gradient 18mmHg). 5) Elevated right sided filling pressures based on IVC assessment. 6) No prior Echo available for comparison. Other Diagnostics Podiatry examination. No open lesion noted. erythema appears to be improving and is limited to the dorsum of the left foot. No noted fluctuance or other clinical signs of abscess formation. No immediate surgical need. Differential diagnosis of Charcot foot, however MRI does not appear consistent with acute Charcot, will follow up as outpatient. Patient will require routine Diabetic care and evaluation as outpatient and is stable to transition to outpatient care from podiatry standpoint. Suggest follow up with podiatry within [address] of discharge. Follow Dr. Jama lu for antibiotic therapy. No further inpatient podiatry care required. Podiatry service will sign off care today. Please re-consult with any further questions or concerns. CATH. FINDINGS: CONCLUSIONS: 1. PCI -- Resolute JOI of proximal LCX culprit lesion -- 3.5 x 18 mm deployed at high pressure. 2. ACS -- NSTEMI. 3. CAD (coronary artery disease) -- two-vessel coronary disease including proximal left circumflex lesion revascularized; and mid diagonal lesions; and distal/apical LAD lesion. RECOMMENDATIONS: 1. ECASA -- indefinitely. 2. Plavix -- one year of Plavix if well tolerated including ongoing Cardiology followup. I discussed with the patient and his the critical importance of mandatory Plavix, and not to stop for any reason without immediate Cardiology consultation. 3. Optimal medical therapy -- guideline directed medical therapy including beta mukesh, including additionally beta mukesh, NING and statin. 4. Reassess atrial fibrillation -- if he has ongoing atrial fibrillation and if he is felt to require ongoing anticoagulation, this can be considered in the context of his dual antiplatelet therapy. 5. Regarding his additional coronary lesions, they can be followed clinically but appear not likely to require intervention unless symptomatic which also appears not likely. Brief History Pierre Quesada is a 75-year-old male with a past medical history significant for diabetes mellitus type II, insulin using who was flown in from [place] to [facility] via EMS for generalized weakness and nausea and vomiting. The patient reports he ate a chicken enchilada early yesterday afternoon and subsequently started to feel ill. He vomited five times. He reports his nausea and vomiting resolved at 21:00 last night. He had accompanying diaphoresis, dizziness, and chills. He denies headache, chest pain , upper extremity pain, numbness, or tingling, jaw pain, shortness of breath, abdominal pain, dysuria, diarrhea, or constipation. He has also recently had cellulitis of his left foot treated with unknown antibiotic. He comes to the ER this evening for generalized weakness and just not feeling "too hot." He was found to have an elevated troponin of 0.160. His EKG was equivocal. Vital signs in the ER: Temperature 38.1. Pulse 87. Respiratory rate 26. Blood pressure 151/58. SPO2 95% on room air. He was given aspirin 324 mg, vancomycin x 1, Zosyn 3.375 mg x 1, and 1 L of NS in the ED. PCP is Eric on [facility]. . Hospital Course Pierre Quesada is a 75-year-old male with a past medical history significant for diabetes mellitus type II, insulin using who was flown in from [place] to [facility] via EMS for generalized weakness and nausea and vomiting. 1. Acute NSTEMI, present on admission. Treated. 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 Ascencio and the culprit lesion for causing the acute coronary syndrome was found in the left circumflex and a stent was deployed in this area with success. - Dual Anti-platelet therapy: ASA for 6 month then Plavix only as outpatient. - Continue Lipitor. - Cardiology following, time and recommendations appreciated. 2. Acute Nonpurulent cellulitis left foot, present on admission. Improving. - The patient has been treated for cellulitis as an outpatient with unknown antibiotic. - Repeat CBC daily. - Procalcitonin 0.44 - MRI per above. - ID consulted, time and recommendations appreciated. - Ceftaroline IV and possibly dalbavancin prior to discharge. - Podiatry consulted for possible Charcot foot. Time and recommendations appreciated. - Physical therapy consulted. 3. Acute Fluid overload, not present on admission. Resolved. - IV lasix 20 mg given several times today. - CXR per above. Repeat tomorrow. 4. Acute Sepsis, present on admission. Resolved - SIRS criteria met: Febrile 38.1, tachypnea respiratory rate 26, lactic acid 2.8, probable source left foot nonpurulent cellulitis and possible food poisoning. - Early goal directed therapy was met including IV antibiotics and fluid resuscitation. - Patient presented with generalized weakness. 5. Acute Possible food poisoning, present on admission. Resolved. - Patient reports he began having nausea and vomiting after he ate lunch at a restaurant which subsided yesterday night at 21:00. - Supportive management including IV fluids. - Viral respiratory PCR negative. 6. Acute Hypomagnesemia, present on admission. Resolved. - Ordered 2 g magnesium for electrolyte repletion. Continue to monitor daily. 7. Actue New onset atrial fibrillation, present on admission, Controlled. - Full dose bridging Lovenox, - Coumadin started, PT (10/30/16) 1.25. - Amiodarone currently at 400 with plan to decrease to 200 mg daily per Cards. Chronic problems: Chronic Diabetes mellitus type II, insulin using, chronic. - The patient reports that he is not always compliant with his diabetic medication/insulin. - Patient reports his last hemoglobin A1c was 7.1%. Ordered hemoglobin A1c = 7.9. - Continue home Lantus 30 units in the morning and 20 units at night when eating , continue correction insulin - Consulted podiatry for diabetic foot recommendations. Chronic Hyperlipidemia, Present on admission, treated. - Not medically managed as an outpatient -Patient started on Lipitor 80 mg by mouth daily -Consider addition of coenzyme Q Chronic Depression, present on admission. active. - Continue Paroxetine 20 mg daily. PRN antiemetics: Zofran and Maalox. PRN bowel regimen: Senna and MiraLAX. PRN analgesics: Tylenol. High risk medications: IV Morphine, PO Coumadin Disposition: Likely here for 1-2 more days depending on Physical therapy progress and O2 requirements. . Exam Vital Signs (Last) Date Time Temp Pulse Resp B/P Pulse Ox O2 Delivery O2 Flow Rate FiO2 10/31/16 07:41 36.5 62 18 158/76 94 Room Air 10/30/16 15:30 2.00 Exam General; Comfortable, NIAD HEENT; IMAN, mouth clear and well hydrated Neck; no overt JVD, large however Cardiac, soft systolic mummer, Lungs; few bibasilar crackles, no wheezing, good air movement Abdo; soft benign Extremities; no edema of significance, redness of left leg is resolving from the ink margins superiorly, however the foot/ankle area remains red and hot, non -purulent. Neuro; CN 2-12 intact, no gross motoer or sensory defects noted . Test 10/25/16 15:50 10/25/16 22:30 10/26/16 02:25 10/26/16 13:55 Hemoglobin A1c 7.9% (4.8-5.6) Urine Color Yellow (YELLOW) Urine Appearance Clear (CLEAR,HAZY) Urine pH 6.0 (5.0-8.0) Urine Specific Wilmot 1.025 (1.003-1.035) Urine Protein 100mg/dL (NEG,TRACE) Urine Glucose (UA) Negativemg/dL (NEGATIVE) Urine Ketones Tracemg/dL (NEGATIVE) Urine Occult Blood Small (NEGATIVE) Urine Nitrite Negative (NEGATIVE) Urine Bilirubin Negative (NEGATIVE) Urine Urobilinogen Normalmg/dL (NORMAL) Urine Leukocyte Esterase Negative (NEGATIVE) Urine RBC 0-2/hpf (0-2) Urine WBC 0-5/hpf (0-5) Urine Epithelial Cells Occasional/hpf (NONE-MOD) Urine Crystals Uric acid crystals (NONE Urine Bacteria None/hpf (NONE-FEW) Urine Hyaline Casts None/lpf (NONE) Urine Granular Casts None seen (NONE SEEN) Urine Waxy Casts None seen (NONE SEEN) Urine Red Blood Cell Casts None seen (NONE SEEN) Urine White Blood Cell Casts None seen (NONE SEEN) Urine Mucus None seen (None Seen) Urine Trichomonas None seen (NONE SEEN) Urine Yeast None (NONE SEEN) Urine Culture Reflexed Not indicated Triglycerides Level 233mg/dL (0-149) Cholesterol Level 197mg/dL (100-199) LDL Cholesterol, Calculated 95.400mg/dL (0-99) VLDL Cholesterol 46.600mg/dL HDL Cholesterol 55mg/dL (>39) Cholesterol/HDL Ratio 3.58 (0.0-4.4) Activated Partial Thromboplast Time 50.3sec (22.8-33.0) Troponin T 0.202ug/L (0.0-0.011) Test 10/26/16 20:55 10/27/16 02:30 10/27/16 12:15 10/28/16 02:05 Hold Blue Top Tube Received (Received) Lactic Acid Level 0.9mmol/L (0.4-2.0) Phosphorus Level 3.9mg/dL (2.5-4.9) Magnesium Level 2.2mg/dL (1.6-2.6) Vancomycin Level Trough 15.3mcg/mL D-Dimer 0.8mg/L (<0.50) Procalcitonin 0.44ng/mL (See Comment) Thyroid Stimulating Hormone (TSH) 2.250uIU/mL (0.450-4.500) Free Thyroxine 1.06ng/dL (0.82-1.77) Streptozyme 61.4IU/mL (0.0-200.0) Test 10/30/16 04:23 10/31/16 03:40 Total Bilirubin 0.5mg/dL (0.0-1.2) Aspartate Amino Transf (AST/SGOT) 20U/L (0-50) Alanine Aminotransferase (ALT/SGPT) 16U/L (0-44) Alkaline Phosphatase 90U/L (25-160) Pro-B-Type Natriuretic Peptide 2174pg/mL (0-376) Total Protein 6.2g/dL (6.4-8.4) Albumin 3.2g/dL (3.4-5.0) White Blood Count 8.7th/mm3 (3.8-10.1) Red Blood Count 3.66mil/mm3 (4.40-5.80) Hemoglobin 11.2g/dL (13.8-17.2) Hematocrit 32.4% (41.0-50.0) Mean Corpuscular Volume 88.5fL (81-100) Mean Corpuscular Hemoglobin 30.6pg (27.0-35.0) Mean Corpuscular Hemoglobin Concent 34.6% (32.0-37.0) Red Cell Distribution Width 13.0% (12.3-15.4) Platelet Count 283bil/L (150-400) Neutrophils (%) (Auto) 72.4% (40-74) Lymphocytes (%) (Auto) 14.2% (14-46) Monocytes (%) (Auto) 8.6% (4-12) Eosinophils (%) (Auto) 1.6% (0-5) Basophils (%) (Auto) 0.2% (0-3) Prothrombin Time 17.9sec (8.1-12.5) Prothromb Time International Ratio 1.66ratio Sodium Level 136mEq/L (134-144) Potassium Level 3.9mEq/L (3.5-5.2) Chloride Level 94mEq/L (97-108) Carbon Dioxide Level 27mmol/L (18-29) Blood Urea Nitrogen 21mg/dL (8-27) Creatinine 0.84mg/dL (0.76-1.27) Estimat Glomerular Filtration Rate 95mL/min (>59) Glucose Level 194mg/dL (60-99) Calcium Level 8.4mg/dL (8.5-10.1) Microbiology Results Blood cultures x 2 pending. . Discharge Medications Discharge Medications ([Warfarin per Pharmacist]) 1 EA EA 5 MG PO DAILY@17 Prescribed by: BERTIN OLIVEIRA DO Amiodarone (Amiodarone) 200 Mg Tablet 200 MG PO DAILY Prescribed by: BERTIN OLIVEIRA DO Amoxicillin/Clav K 875-125 mg (Amoxicillin/Clav K 875-125 mg) 875 Mg Tab 1 TAB PO BID Prescribed by: BERTIN OLIVEIRA DO Aspirin Chew (Aspirin Chew) 81 Mg Chew 81 MG PO DAILY Prescribed by: BERTIN OLIVEIRA DO Atorvastatin Calcium (Atorvastatin Calcium) 40 Mg Tablet 80 MG PO HS Prescribed by: BERTIN OLIVEIRA DO Clopidogrel (Clopidogrel) 75 Mg Tablet 75 MG PO DAILY Prescribed by: BERTIN OLIVEIRA DO Insulin Glargine (Lantus U100 Solostar Insulin Pen) 100 Unit/1 Ml Insuln.pen 30 UNIT SUBQ QAM (Reported) Insulin Glargine (Lantus U100 Solostar Insulin Pen) 100 Unit/1 Ml Insuln.pen 20 UNIT SUBQ QPM (Reported) Lisinopril (Lisinopril) 5 Mg Tablet 5 MG PO DAILY Prescribed by: BERTIN OLIVEIRA DO Meloxicam (Meloxicam) 15 Mg Tablet 15 MG PO QAM (Reported) Metformin (Metformin) 500 Mg Tablet 1,000 MG PO BID (Reported) Metoprolol Tartrate (Metoprolol Tartrate) 25 Mg Tablet 12.5 MG PO BID Prescribed by: BERTIN OLIVEIRA DO Paroxetine (Paxil) 20 Mg Tablet 20 MG PO HS (Reported) Followup Plan Follow-up plan New medications. Warfarin 5 mg Daily. Follow closely with Coumadin clinic regarding INR. Amiodarone 200 mg Daily. Follow closely with Cardiology clinic. Aspirin 81 mg Daily. Stop taking after 6 weeks (42 days, when the bottle runs out) Plavix 75 mg Daily. Lipitor 80 mg Daily. Augmentin 875 mg Daily for 7 days. Metoprolol 12.5 mg twice a day. Lisinopril 5 mg Daily. Continue other medications. Continue home insulin regimen. Continue home Metformin. Continue Meloxicam as needed. Continue Paroxetine as needed. Diet Heart Healthy Activity Home Health Phyical Therapy Call your provider Bleeding, Chest pain, Vomitting, Excessive diarrhea Patient Instructions Follow-up plan Follow up within 1 week with Cardiology clinic regarding Amiodarone dosing and Warfarin. Aspirin may be stopped after 6 weeks (42 days.). ---- Will need to follow up regarding TSH and T4. LFTs, PFTs, and Eye exam. Follow up with your PCP Dr. Reyes in 1-2 weeks regarding hospital stay and new medications outlined above. Follow up in 1-3 days with Coumadin clinic regarding INR and Coumadin dosing. Follow up in [address] Esqueda with podiatry regarding foot care and complications of diabetes. Follow-up Provider: Sandeep Reyes MD Follow-up with PCP in: 2 weeks Provider: Unruly Esqueda DPM Follow-up in: 1 week Discharge Diet: Heart Healthy Discharge Activity: Home Health Phyical Therapy Follow-up Provider: Sandeep Reyes MD Follow-up with PCP in: 2 weeks Provider: Unruly Esqueda DPM Follow-up in: 1 week Attending Statement The patient was seen and examined together with Dr. Oliveira on 10-31-16 and I agree with the history, exam and plan as outlined in the note above. copies to: Sandeep Reyes MD; Unruly Esqueda DPM, COREY P DO Oct 31, 2016 10:45 Ron Neal MD Nov 11, 2016 08:23
== END 2016-10-31 16:40 | disposition home health service (06) | DRG 246 ==
LOC: EDBD 15:02 → SED 15:02 → MPC 18:04 → CCU 10-26 15:20 → PCC 10-27 12:08
PROVIDERS: ADMIT Internal Medicine; ATTEND Internal Medicine
PROC: 027034Z Dilation of Coronary Artery, One Artery with Drug-eluting Intraluminal Device, Percutaneous Approach (ICD-10-PCS; principal; 2016-10-26)
PROC: B2111ZZ Fluoroscopy of Multiple Coronary Arteries using Low Osmolar Contrast (ICD-10-PCS; 2016-10-26)
PROC: 4A033R1 Measurement of Arterial Saturation, Peripheral, Percutaneous Approach (ICD-10-PCS; 2016-10-27)
DX: I21.4 Non-ST elevation (NSTEMI) myocardial infarction (principal); A41.9 Sepsis, unspecified organism; L03.116 Cellulitis of left lower limb; I24.9 Acute ischemic heart disease, unspecified; E11.628 Type 2 diabetes mellitus with other skin complications; Z79.4 Long term (current) use of insulin; E11.65 Type 2 diabetes mellitus with hyperglycemia; T62.8X1A Toxic effect of other specified noxious substances eaten as food, accidental (unintentional), initial encounter; E83.42 Hypomagnesemia; Z91.14 Patient's other noncompliance with medication regimen; E78.5 Hyperlipidemia, unspecified; F32.9 Major depressive disorder, single episode, unspecified; I48.91 Unspecified atrial fibrillation; I25.10 Atherosclerotic heart disease of native coronary artery without angina pectoris; E11.51 Type 2 diabetes mellitus with diabetic peripheral angiopathy without gangrene; E87.70 Fluid overload, unspecified